=== PATIENT | female | born 1955 | race Caucasian/White ===

== ENCOUNTER → 2016-10-23 | Outpatient (CLI) | payer OTHER ==
[~2016-10-23] MED LIST: FELO10TA2 PO; HYDR25TA4 PO; LISI40TA PO; LPR100 PO; OXYC7.5T78 PO; POTA10CA28 PO; POTA10TA PO; SIMV40TA4 PO; TYLOTC500 PO
[2016-10-23 13:43] LABS: ALT/SGPT 18 U/L (12-78); BLOOD UREA NITROGEN 17 mg/dl (7-18); BUN/CREATININE RATIO 20.6 (10-20); CALCIUM 9.2 mg/dl (8.5-10.1); CARBON DIOXIDE 28 mmol/L (21-32); CHLORIDE 105 mmol/L (98-107); CREATININE 0.82 mg/dl (0.60-1.20); GLUCOSE 105 mg/dl (70-99); POTASSIUM 3.7 mmol/L (3.5-5.1); SODIUM 141 mmol/L (136-145)
[2016-10-23 13:44] LABS: TOTAL IRON BINDING CAPACITY 272 mcg/dl (250-450)
[2016-10-23 13:45] LABS: ALB/GLOB RATIO 0.8 (0.9-2); ALKALINE PHOSPHATASE 87 U/L (45-117); AST/SGOT 12 U/L (15-37)
[2016-10-27 00:38] LABS: PARVOVIRUS IgG INDEX 6.5 (<0.9); PARVOVIRUS IgM INDEX 0.2 (<0.9)
== END | disposition home or self-care (01) ==
LOC: C.LABPVFM 07:59
PROVIDERS: ATTEND Internal Medicine Rheumatology
DX: M13.0 Polyarthritis, unspecified (principal)

== ENCOUNTER → 2016-11-16 | Outpatient (CLI) | payer OTHER ==
[2016-11-16 11:32] LABS: BASO % 0.4 %; BASO ABS # 0.04 K/uL (0-0.2); COMPLETE YES; EOS % 1.5 %; HEMATOCRIT 43.5 % (37-47); IG% 0.2 %; LYMPH ABS # 2.57 K/uL (1.2-3.4); MEAN CELL VOLUME 85.3 fL (80-100); MEAN CORPUSCULAR HEMOGLOBIN 27.6 pg (25-34); MEAN CORPUSCULAR HGB CONC 32.4 g/dl (32-36); MEAN PLATELET VOLUME 11.8 fL (7.4-10.4); MONO % 8.7 %; NEUT % 63.2 %; PLATELET COUNT 301 K/uL (130-400); WHITE BLOOD COUNT 9.87 K/uL (4.8-10.8)
[2016-11-16 11:40] LABS: ALT/SGPT 16 U/L (12-78); AST/SGOT 10 U/L (15-37); BLOOD UREA NITROGEN 18 mg/dl (7-18); BUN/CREATININE RATIO 20.3 (10-20); CALCIUM 9.5 mg/dl (8.5-10.1); CARBON DIOXIDE 31 mmol/L (21-32); CHLORIDE 103 mmol/L (98-107); CREATININE 0.87 mg/dl (0.60-1.20); GLUCOSE 105 mg/dl (70-99); POTASSIUM 3.7 mmol/L (3.5-5.1); SODIUM 140 mmol/L (136-145)
[2016-11-16 11:44] LABS: C-REACTIVE PROTEIN 1.87 mg/dl (0-0.29); RHEUMATOID FACTOR < 10.0 U/mL (0-15)
[2016-11-16 11:44] LABS: ALB/GLOB RATIO 0.9 (0.9-2); ALKALINE PHOSPHATASE 98 U/L (45-117)
[2016-11-16 18:23] LABS: LYME DISEASE AB IGM NEG (NEG)
[2016-11-16 18:26] LABS: LYME DISEASE AB IGG NEG (NEG)
[2016-11-19 20:17] LABS: HLA-B27** TC 528X POSITIVE (NEGATIVE)
[2016-11-20 14:07] LABS: ANA TITER > OR = 1:1280 TITER (<1:40)
== END | disposition home or self-care (01) ==
LOC: C.LABBC 08:42
PROVIDERS: ATTEND Orthopaedic Surgery Sports Medicine
DX: M25.561 Pain in right knee (principal); I10 Essential (primary) hypertension; E78.5 Hyperlipidemia, unspecified

== ENCOUNTER → 2016-11-18 | Outpatient (CLI) | payer OTHER ==
--- NOTE | 2016-11-18 10:48 | DIAGNOSTIC IMAGING REPORT ---
LEFT KNEE MRI CLINICAL HISTORY: 61-year-old female with left knee pain, clinical concern for meniscal tear, no reported injury. TECHNIQUE: Multiplanar multisequence MRI of the left knee was performed according to standard department protocol without the use of contrast. COMPARISON: Correlation made to plain radiographs of the left knee from 2017 and left knee MRI from 2013.. FINDINGS: Menisci: Minimal intrasubstance signal within the body of the medial meniscus, likely degenerative. Medial meniscus is otherwise intact. Fraying of the undersurface of the lateral meniscus at the junction of the anterior horn and body, which is also abnormal in configuration and displaced slightly superior laterally. This likely indicates complex tear. The meniscotibial ligament may be disrupted, accounting for the altered morphology. Parameniscal cyst along the posterior horn-body junction, likely indicating chronic tear in this region. Ligamentous: Anterior posterior cruciate ligaments intact. Medial collateral ligament intact. Lateral collateral ligament complex including the iliotibial band, biceps femoris tendon, fibular collateral ligament, and popliteus tendon are intact. There may be slight high signal within the femoral origin of the fibular collateral ligament, which may be tendinosis. Fluid around the popliteus tendon may also indicate tendinosis. Extensor mechanism: Intact. Slight increased signal within Hoffa's fat pad. Joint effusion. Small knee joint effusion. No significant popliteal cyst. Bones and cartilage: Interval development of subchondral sclerosis in the lateral femoral condyle and lateral tibial plateau, where there is significantly greater articular cartilage loss and on the prior exam. Interval development of subchondral cystic change along the anterior aspect of the lateral tibial plateau, new from prior. Heterogeneous mild bony edema noted in both femoral condyles and medial lateral tibial plateau, also new from prior. Mild bony edema also noted along the anterior aspect of the patella. Significant thinning of articular cartilage in the medial compartment diffusely, which has progressed and has the greatest degree of joint space loss. Focal subchondral cystic change along the posterior aspect of the medial tibial plateau. Articular cartilage thinning in both the medial and lateral patellofemoral facets with full-thickness fissuring noted medially with subchondral cystic change in the patella. Soft tissues: Diffuse subcutaneous edema around the knee. Overall preserved signal intensity of the musculature with normal muscle bulk. IMPRESSION: 1. Significant interval progression of tricompartmental degenerative changes. 2. Possible complex tear of the anterior horn-body junction of the lateral meniscus. The presence of a parameniscal cyst at the posterior horn-body junction of the lateral meniscus also could indicate chronic tear. 3. Small knee joint effusion. Electronically signed by: Marshall Mercedes M.D. 11/18/2016 10:47 AM Dictated Date/Time: 11/18/2016 10:04 AM
== END | disposition home or self-care (01) ==
LOC: C.MRIBC 09:00
PROVIDERS: ATTEND Orthopaedic Surgery Sports Medicine
DX: M25.562 Pain in left knee (principal); S83.207A Unspecified tear of unspecified meniscus, current injury, left knee, initial encounter; X58.XXXA Exposure to other specified factors, initial encounter; M17.12 Unilateral primary osteoarthritis, left knee; M25.462 Effusion, left knee

== ENCOUNTER → 2017-05-21 | Outpatient (CLI) | payer OTHER ==
[2017-05-21 18:04] LABS: GLUCOSE 99 mg/dl (70-99)
[2017-05-21 18:04] LABS: BLOOD UREA NITROGEN 14 mg/dl (7-18); BUN/CREATININE RATIO 16.8 (10-20); CALCIUM 9.4 mg/dl (8.5-10.1); CARBON DIOXIDE 29 mmol/L (21-32); CHLORIDE 105 mmol/L (98-107); CREATININE 0.86 mg/dl (0.60-1.20); EstGFR CKD-E AfrAm 85.1; EstGFR CKD-E NON AfrAm 73.4; MAGNESIUM 2.5 mg/dl (1.8-2.4); POTASSIUM 4.4 mmol/L (3.5-5.1); SODIUM 140 mmol/L (136-145)
[2017-05-21 18:46] LABS: HEP C IGG 13 YRS+OLDER_RFLX NEG (NEG)
== END | disposition home or self-care (01) ==
LOC: C.LABPVFM 15:31
DX: Z11.59 Encounter for screening for other viral diseases (principal); I10 Essential (primary) hypertension; G25.81 Restless legs syndrome

== ENCOUNTER 2018-06-07 10:09 | Inpatient (IN) ==
--- NOTE | 2018-05-13 15:58 | PAT Medication Instructions ---
Medication Instructions Date of Service May 13, 2018 Home Medications bupropion HCl 150 mg PO QAM felodipine 10 mg PO QAM hydrochlorothiazide 25 mg PO QAM lisinopril 40 mg PO QAM metoprolol tartrate 100 mg PO BID naproxen sodium [Aleve] 220 mg PO BID PRN potassium chloride 10 meq PO HS potassium chloride 20 meq PO QAM simvastatin 40 mg PO HS ASK your surgeon for instructions naproxen sodium [Aleve] 220 mg PO BID PRN DO NOT take the morning of surgery hydrochlorothiazide 25 mg PO QAM lisinopril 40 mg PO QAM potassium chloride 20 meq PO QAM Take morning of surgery With a small sip of water, OTHERWISE NOTHING TO EAT OR DRINK AFTER MIDNIGHT: bupropion HCl 150 mg PO QAM felodipine 10 mg PO QAM metoprolol tartrate 100 mg PO BID Take evening before surgery metoprolol tartrate 100 mg PO BID potassium chloride 10 meq PO HS simvastatin 40 mg PO HS Other Notes If you have any questions please call us at [phone] or [phone] or [phone] or [phone]
--- NOTE | 2018-05-16 09:43 | Anesthesiology Consultation ---
Date of Service May 16, 2018 Assessment & Plan (1) Encounter for pre-operative examination: Chart Review Chart Review: Acceptable Risk for Surgery and Patient seen in Pre Admission Testing Teaching & Discussion Pre-Anesthesia Teaching/Discussion Notes: Instructed NPO after midnight before surgery,except medications with 15 cc of water. Medication instructions provided according to the PAT guidelines. History Surgery Operation Date: 06/07/18 10:40 Proposed Procedures p Left Total Knee Arthroplasty - Vic Bhat MD Height/Weight Height: 5 ft 3 in Weight: 88.4 kg Allergies Allergy/AdvReac Type Severity Reaction Status Date / Time No Known Allergies Allergy Mild Verified 05/10/18 13:44 Medications Home Medications Medication Instructions Recorded Confirmed Last Taken bupropion HCl 150 mg PO QAM 05/10/18 05/10/18 Unknown felodipine 10 mg PO QAM 05/10/18 05/10/18 Unknown hydrochlorothiazide 25 mg PO QAM 05/10/18 05/10/18 Unknown lisinopril 40 mg PO QAM 05/10/18 05/10/18 Unknown metoprolol tartrate 100 mg PO BID 05/10/18 05/10/18 Unknown naproxen sodium [Aleve] 220 mg PO BID PRN 05/10/18 05/10/18 Unknown potassium chloride 10 meq PO HS 05/10/18 05/10/18 Unknown potassium chloride 20 meq PO QAM 05/10/18 05/10/18 Unknown simvastatin 40 mg PO HS 05/10/18 05/10/18 Unknown Past Medical History Medical History Anxiety Depression GERD (gastroesophageal reflux disease) CONTROLLED WITH OTC PRN Hyperlipidemia Hypertension Obesity Past Family History Family History Father Family history of diabetes mellitus Mother Family history of diabetes mellitus Past Surgical History Surgical History History of appendectomy History of arthroscopy LEFT KNEE History of bilateral tubal ligation History of dilatation and curettage Past Anesthesia History No Hx of Anesthesia Complications and No Family Hx of Anesthesia Complications History of PONV No Motion Sickness Screening History of Motion Sickness: Yes (OCCASIONAL) Social History Smoking Status: Current every day smoker tobacco type: cigarettes Smoking cigarettes per day: 1 PPD X 40 YEARS Do You Dip or Chew Tobacco: No Hx Alcohol Use: No Hx Substance Use: No substance use type: does not use Exercise / Class Metabolic Activity III < 4 Walking/Shop/Light housework Review of Systems URI symptoms improving. Patient denies chest pain, shortness of breath, wheezing , palpitations. Physical Exam Vital Signs VITALS BP 124/77 P 67 TEMP 98.2 SP02 95%RA RESP 16 Full neck and c-spine range of motion. Full TMJ range of motion. TMD 2.5 finger breaths Mallampati Score 2 Dentition: upper full dentures Lungs: clear throughout to auscultation Cardiac: regular rate and rhythm, no murmurs noted Spine: normal Carotid arteries: negative bruit Extremities: no edema Testing Electrocardiogram Date: 05/16/18 NSR at 64 bpm. Cannot rule out anterior infarct, age undetermined (compared to , ventricular rate decreased by 57bpm per cardio). Chest X-Ray Date: 05/16/18 Findings: + NAD Incidental note is made of an azygos fissure. Echocardiogram Date: 10/04/12 EF 60%. No RWMA. Mild MR/TR. Stress Test Date: 10/05/12 Type: exercise Normal stress ECHO at 10.4 METS. MPHR 66%. No chest pain. Laboratory Results 05/16/18 09:52 05/16/18 09:52 Blood Type O Positive 05/16/18 09:52 Antibody Screen NEGATIVE 05/16/18 09:52 PT 10.7 Seconds (9.0-12.0) 05/16/18 09:52 INR 1.1 (0.9-1.1) 05/16/18 09:52 APTT 31.0 Seconds (21.0-31.0) 05/16/18 09:52 Surgeon made aware of elevated WBC.*
--- NOTE | 2018-05-16 10:10 | XRay Report ---
XR chest Pre-admission PA/Lat CLINICAL HISTORY: Preoperative evaluation. COMPARISON STUDY: Chest radiograph and chest CT November 14, 2014. FINDINGS: Incidental note is made of an azygos fissure. There is no pneumothorax or pleural effusion. There is no consolidation or evidence for pulmonary edema. Cardiomediastinal silhouette is unremarka ble. IMPRESSION: No acute cardiopulmonary findings. Electronically signed by: Pollo Rubi M.D. 05/16/2018 10:09 AM
[2018-05-16 10:30] LABS: Basophils # (auto) 0.03 K/uL (0-0.2); Basophils % (auto) 0.3 %; Eosinophils # (auto) 0.13 K/uL (0-0.5); Eosinophils % (auto) 1.1 %; Hematocrit (blood only) 43.7 % (37-47); Hemoglobin 14.3 g/dL (12.0-16.0); Immature Granulocytes # (auto) 0.02 K/uL (0.00-0.02); Immature Granulocytes % (auto) 0.2 %; Lymphocytes # (auto) 3.25 K/uL (1.2-3.4); Mean Corpuscular Hgb Conc 32.7 g/dL (32-36); Mean Corpuscular Volume 87.4 fL (80-100); Mean Platelet Volume 11.5 fL (7.4-10.4); Monocytes # (auto) 0.94 K/uL (0.11-0.59); Monocytes % (auto) 8.1 %; Neutrophils # (auto) 7.23 K/uL (1.4-6.5); Neutrophils % (auto) 62.3 %; Platelet Count 313 K/uL (130-400); RDW Coefficient of Variation 14.1 % (11.5-14.5); RDW Standard Deviation 44.8 fL (36.4-46.3)
[2018-05-16 10:39] LABS: BUN Creatinine Ratio 17.3 (10-20); C Reactive Protein 1.78 mg/dl (0-0.29); Calcium 9.4 mg/dl (8.5-10.1); Creatinine Clr Calc Pharmacy 76.9 ml/min; Est GFR (African American) 90.9; Est GFR (Non-African American) 78.4; Potassium 3.9 mmol/L (3.5-5.1)
[2018-05-16 10:41] LABS: INR 1.1 (0.9-1.1); Partial Thromboplastin Ratio 1.2; Prothrombin Time 10.7 Seconds (9.0-12.0)
--- NOTE | 2018-06-04 13:34 | History and Physical Report ---
DATE OF ADMISSION: 06/07/2018 CHIEF COMPLAINT: Left knee pain. HISTORY OF PRESENT ILLNESS: The patient is a 63-year-old female who has got a very complex history relating to her left knee. She has about a 4-5 year history of increasing left knee pain and discomfort. She did undergo an open biopsy of an epidermoid cyst by Dr. Alana aguilar in 2013. The Gram stain was positive. The cultures were negative. Shortly thereafter, she developed intraarticular pathology and symptoms. She had recurrent knee effusions. We were aspirated on several occasions and sent off for analysis. It looks like an inflammatory fluid, but never grew anything. She has had an elevated sed rate and C-reactive protein and the elevated JELENA and was also HLA-B27 positive, but rheumatoid factor negative. She saw a head of ict who diagnosed her with CREST syndrome, but another said she did not have CREST syndrome. She saw Dr. Neal, had her knee scoped in 2014, which did not help at all. She did eventually make away down to [facility] and had an open biopsy in 2014, which was nondiagnostic. She continues to be limited by the knee pain and discomfort that has gradually just gotten worse over time. She has been followed by Dr. Gudino over the past year, trying various medicines without relief. She continues to be debilitated by pain. She cannot walk any significant distance. She limps pretty much all the time. She now would like to proceed with surgical treatment. PAST MEDICAL HISTORY: 1. Hypertension. 2. Anxiety/depression. 3. Obesity with BMI of 35. 4. Gastroesophageal reflux disease. PAST SURGICAL HISTORY: Previous surgeries include: 1. Left knee surgery x3 as described above with an open biopsy in 2013, knee scope in 2014 and an open synovial biopsy in 2014 at [facility]. 2. Appendectomy. ALLERGIES: None. CURRENT MEDICATIONS: Unlisted. SOCIAL HISTORY: Significant for a 63-year-old female. She is . [id number] history of smoking. No significant alcohol intake. FAMILY HISTORY: Significant for a diagnosis of ankylosing spondylitis. REVIEW OF SYSTEMS: Negative for diabetes, neurologic problems, vascular problems, bleeding disorders. No chest pain or shortness of breath. No history of DVT or PE. PHYSICAL EXAMINATION: GENERAL: Reveals a fairly pleasant, middle-aged female. Looks to be in pretty good health. HEENT: Benign. NECK: Supple. No lymphadenopathy. LUNGS: Clear to auscultation. HEART: Regular rate and rhythm. ABDOMEN: Soft, nontender, nondistended. EXTREMITIES: Grossly neurovascularly intact except as follows: Examination of the left knee reveals patient walks with a significant antalgic gait. She keeps her knee slightly bent and stiff when she walks. Range of motion about 10 degrees short of full extension to about 100 degrees of flexion. Some mild diffuse boggy synovitis. No pain with hip motion. She is neurologically intact. X-RAYS: X-rays of the left knee reviewed. Shows advanced left knee lateral compartment DJD. She has complete loss of her lateral joint space. She got some disuse osteopenia. No obvious abscesses. ASSESSMENT: A 63-year-old white female with a 4-year history of persistent left hip pain and discomfort, unresponsive to conservative treatment. She does have an inflammatory workup, which suggests some type of inflammatory arthritis. She has failed all conservative treatment. Cultures have all been pretty negative for any signs of infection. PLAN: We talked about treatment options. She really would like to have this fixed if possible. She would like to have her knee replaced. We are going to proceed with left knee replacement. I did tell her that I think she is at increased risk of infection with all these other issues, but later only chance of getting some relief. We are going to take her to the operating room and do a left total knee replacement. The risks and benefits of this procedure were explained to the patient including but not limited to DVT, PE, , infection, neurological injury, vascular injury, bleeding problem, pain, limited range of motion, stiffness, failure to relieve her symptoms, incomplete relief of symptoms, need for further surgery in future, fracture, leg length inequality, nerve palsy, persistent pain, and infection. The patient understands and desires to proceed. Informed consent was obtained. I did tell her that I do think she is at increased risk of infection. Will use some vancomycin in the cement. I also talked about stopping smoking which increases her chance of healing without infection. As far as discharge plans, she is planning to be discharged to home and do outpatient therapy.
[~2018-06-07 10:09] MED LIST changes: +ACETAMINOPHEN 500 MG TAB PO SCH; +BUPIVACAINE 0.5 % 5 MG/1 ML PF 10ML VIAL ONE; +BUPIVACAINE LIPOSOME/PF 266 MG, BUPIVACAINE/EPINEPHRINE 50 ML, SODIUM CHLORIDE 0.9% 30 ... INFIL SCH; +CEFAZOLIN 2000MG 2,000 MG/15 ML SYR IV SCH; +FAMOTIDINE 20 MG TAB PO SCH; -FELO10TA2 PO; +GABAPENTIN 300 MG x 2 PO SCH; -HYDR25TA4 PO; -LISI40TA PO; -LPR100 PO; +LR 60ML/HR IV SCH; +METOCLOPRAMIDE HCL 10 MG TABLET PO SCH; -OXYC7.5T78 PO; -POTA10CA28 PO; -POTA10TA PO; +ROPIVACAINE 0.5% 5 MG/ML 30 ML VIAL ONE; +SCOPOLAMINE 1.5 MG TDSY TD SCH; -SIMV40TA4 PO; +TRANEXAMIC ACID 1,000 MG **IV Intra-op IV SCH; -TYLOTC500 PO
[2018-06-07] MEDS: LR 500ML BOLUS, THEN 15ML/HR IV SCH ×4 (10:51→22:12)
--- NOTE | 2018-06-07 10:52 | History & Physical Bridge Note ---
Date of Service June 07, 2018 History & Physical Bridge Note I have examined the patient, reviewed the History & Physical and in the interval since the performance of the History & Physical I have noted the following changes of clinical significance: no changes noted
[2018-06-07] MEDS ORDERED: BACITRACIN INJ 50,000 UNIT VIAL ONE (10:53)
[2018-06-07] MEDS ORDERED: SODIUM CHLORIDE 0.9% PF 50 ML VIAL ONE (10:53)
[2018-06-07] MEDS ORDERED: EPINEPHrine INJ 1 MG/ML AMP ONE (10:53)
[2018-06-07] MEDS ORDERED: BUPIVACAINE 0.25% 30 ML VIAL ONE (10:53)
[2018-06-07] MEDS ORDERED: BUPIVACAINE LIPOSOME 1.3% 266 MG/20 ML VIAL ONE (10:53)
[2018-06-07] MEDS ORDERED: VANCOMYCIN HCL 1000MG/20ML VIAL ONE (10:59)
--- NOTE | 2018-06-07 10:59 | History & Physical Bridge Note ---
Date of Service June 07, 2018 History & Physical Bridge Note I have examined the patient, reviewed the History & Physical and in the interval since the performance of the History & Physical I have noted the following changes of clinical significance: Patient having significant swelling and pain in right Knee and requesting aspiration and injection under anesthesia. We will aspirate and inject the right knee today under anesthesia.
[2018-06-07] MEDS ORDERED: fentaNYL citrate 100 MCG/2 ML VIAL ONE (11:55)
[2018-06-07] MEDS ORDERED: MIDAZOLAM HCL 1 MG/ML 2ML VIAL ONE ×2 (11:56)
[2018-06-07] MEDS ORDERED: BUPIVACAINE 0.5 % 5 MG/1 ML MPF 30ML VIAL ONE (12:45)
[2018-06-07] MEDS ORDERED: BETAMETH SOD PHOS/ACETATE IA 6 MG/ML IM SCH (13:00)
[2018-06-07] MEDS ORDERED: PROPOFOL IV EMULSION 10 MG/ML 20 ML VIAL IV ONE (13:28)
[2018-06-07] MEDS ORDERED: LIDOCAINE HCL 2% 2 ML VIAL/AMP(20MG/ML) INFIL ONE (13:28)
[2018-06-07 14:57] LABS: Appearance Synovial Fluid CLOUDY; Color Synovial Fluid YELLOW; Polynuclear WBC Synovial 75.9 %; RBC Synovial Fluid (A) < 3000 /uL; Source Synovial Fluid KNEE; WBC Synovial Fluid (A) 5791 /uL (0-200)
--- NOTE | 2018-06-07 15:15 | Anesthesiology Progress Note ---
Date of Service June 07, 2018 Anesthesia Post Procedure Vital Signs Vital Signs: Temp Pulse Resp BP Pulse Ox 06/07/18 10:26 36.7 C 65 18 136/84 95 Pain Intensity Left Knee: Pain Intensity: 3 Notes Mental Status: alert / awake / arousable and participated in evaluation Patient Amnestic to Procedure: Yes Nausea / Vomiting: adequately controlled Pain: adequately controlled Airway Patency, RR, SpO2: stable & adequate BP & HR: stable & adequate Hydration State: stable & adequate Neuraxial Anesthesia: was administered and sensory block is resolving Anesthetic Complications: no major complications apparent
--- NOTE | 2018-06-07 15:23 | Post Operative Brief Note ---
Immediate Post Op Note v1 Date of Surgery June 07, 2018 Pre & Post Diagnosis Operation Date: 06/07/18 12:30 Pre-Op Diagnosis: Bilateral Knee Degenerative Joint Disease Post-Op Diagnosis: Bilateral Knee Degenerative Joint Disease Procedure Operation Date: 06/07/18 12:30 Actual Procedures p Left Total Knee Arthroplasty(Left) - Vic Bhat MD p Right knee Joint Aspiration and Injection - Vic Bhat MD Surgeon Vic Bhat MD Modern Greek Studies Professor Tammy, PAC Estimated Blood Loss 50 Findings Consistent with Post-Op Diagnosis Fluids 1300 cc Specimens Left Knee Right Knee Fluid Drains Florian Catheter Anesthesia Type Spinal MAC Complications none Disposition Accompanied Patient To Recovery: No Disposition: Recovery Room
--- NOTE | 2018-06-07 15:47 | Anesthesiology Progress Note ---
Date of Service June 07, 2018 Anesthesia Post Procedure Vital Signs Vital Signs: Temp Pulse Resp BP Pulse Ox 06/07/18 10:26 36.7 C 65 18 136/84 95 Pain Intensity Left Knee: Pain Intensity: 3 Notes Notes: Anesthesia Post Procedure Note entered at 1515 was misentry. Pt will be evaluated in PACU prior to discharge as per routine.
--- NOTE | 2018-06-07 15:51 | Anesthesiology Progress Note ---
Date of Service June 07, 2018 Anesthesia Post Procedure Vital Signs Vital Signs: Temp Pulse Pulse Resp BP Pulse Ox 06/07/18 15:27 36.5 C 67 20 110/69 99 06/07/18 10:26 36.7 C 65 18 136/84 95 Pain Intensity Left Knee: Pain Intensity: 3 Notes Mental Status: alert / awake / arousable Patient Amnestic to Procedure: Yes Nausea / Vomiting: adequately controlled Pain: adequately controlled Airway Patency, RR, SpO2: stable & adequate BP & HR: stable & adequate Hydration State: stable & adequate Neuraxial Anesthesia: was administered and sensory block is resolving Anesthetic Complications: no major complications apparent and Pt Satisfied with anesthetic care
[2018-06-07] MEDS ORDERED: ATROPINE SULFATE 0.1 MG/ML 10ML SYR IV PRN (15:56)
[2018-06-07] MEDS ORDERED: ONDANSETRON INJ 2 MG/ML 2 ML VIAL IV PRN ×2 (15:56→16:36)
[2018-06-07] MEDS ORDERED: ePHEDrine sulfate 50 MG/ML AMP IV PRN (15:56)
[2018-06-07] MEDS ORDERED: PHENYLEPHRINE 100MCG/ML 5ML SYR IV PRN (15:56)
[2018-06-07] MEDS ORDERED: fentaNYL citrate 100 MCG/2 ML VIAL IV PRN (15:56)
[2018-06-07] MEDS ORDERED: LABETALOL HCL IV 5 MG/ML 20ML IV PRN (15:56)
--- NOTE | 2018-06-07 15:57 | XRay Report ---
XR knee LT 2V routine HISTORY: 63 years-old Female Surgical Post Op left knee total joint arthroplasty. History of degener ative joint disease. COMPARISON: Left knee radiographs 05/15/2016 TECHNIQUE: 2 views of the left knee FINDINGS: Left knee total joint arthroplasty with patellar resurfacing. Anterior midline skin kerwin are noted along with postsurgical soft tissue swelling and deep tissue air. Alignment is satisfactory. No acut e fracture or retained foreign body identified. IMPRESSION: Left knee total joint arthroplasty and patella resurfacing with satisfactory alignment. The above report was generated using voice recognition software. It may contain grammatical, syntax o r spelling errors. Electronically signed by: Fabian Trimble M.D. 06/07/2018 3:55 PM
[2018-06-07] MEDS ORDERED: DiphenhydrAMINE HCL 50 MG/ML VIAL IV PRN (16:36)
[2018-06-07] MEDS ORDERED: METOCLOPRAMIDE HCL INJ 5 MG/ML 2 ML VIAL IV PRN (16:36)
[2018-06-07] MEDS ORDERED: HYDROmorphone INJ 0.5 MG/0.5 ML SYR IV PRN (16:36)
[2018-06-07] MEDS ORDERED: MAGNESIUM HYDROXIDE SUSP 30 ML UDC PO PRN (16:36)
[2018-06-07] MEDS ORDERED: SODIUM CHLORIDE 0.9% 1000ML 1,000 ML IV SCH (16:36)
[2018-06-07] MEDS ORDERED: NALOXONE HCL 0.4 MG/1 ML VIAL/CARP IV PRN (16:36)
[2018-06-07] MEDS ORDERED: ALUMINUM/MAGNESIUM SUSP 30 ML UDC PO PRN (16:36)
[2018-06-07] MEDS ORDERED: BISACODYL 10 MG SUPP PR PRN (16:36)
[2018-06-07] MEDS: KETOROLAC 30 MG/ML VIAL IV SCH ×2 (17:59→22:46)
[2018-06-07] MEDS: ASCORBIC ACID 500 MG TAB PO SCH (18:00)
[2018-06-07] MEDS: FERROUS GLUCONATE 324 MG TAB PO SCH (18:00)
[2018-06-07] MEDS: CHECK SCOPOLAMINE PATCH PLACEMENT SCH ×2 (18:03→23:49)
--- NOTE | 2018-06-07 18:44 | Operative Report ---
DATE OF OPERATION: 06/07/2018 SURGEON: Vic Bhat MD INTERACTIVE MULTIMEDIA DESIGNER: OLAYINKA Young PREOPERATIVE DIAGNOSIS: Bilateral knee degenerative joint disease. POSTOPERATIVE DIAGNOSIS: Bilateral knee degenerative joint disease. PROCEDURE PERFORMED: 1. Left cemented posterior stabilized total knee arthroplasty. 2. Right knee aspiration and injection. COMPLICATIONS: None. ESTIMATED BLOOD LOSS: 50 mL FLUID REPLACEMENT: 1300 mL crystalloid fluid replacement. TOURNIQUET TIME: 86 minutes at 300 mmHg. ANESTHESIA: Spinal with adductor canal block. DRAINS: None. SPECIMENS: 1. Right knee joint fluid sent for cell count with differential and crystal analysis. 2. Left knee a joint synovium sent for pathology. OPERATIVE INDICATIONS: The patient is a 63-year-old female who has had a several year history of pretty severe and progressive knee pain and discomfort, left side much more than the right. She has been through extensive workup in the past including several biopsies as well as knee arthroscopy without any relief. X-rays as well as MRI showed progressive knee arthritis in the left knee. She also had a synovial biopsy, which was nondiagnostic. There was some concern for infection, but a lot of her inflammatory parameters including her JELENA and HLA-B27 were positive. This suggested some type of inflammatory process, which was consistent with her disease pattern. All the evaluations has never showed any bacterial growth. Her disease progressed and she was markedly debilitated by this over the past 2 years. She has been managed by sales incentive analyst unsuccessful and elected to proceed with total knee arthroplasty. Of note, the patient has developed increasing symptoms in her right knee as well with recurrent effusions. She wanted this aspiration injection. OPERATIVE FINDINGS: Operative findings of the right knee revealed moderate to large knee joint effusion with 40 mL of inflammatory fluid. Operative findings of the left knee revealed a markedly arthritic and inflamed knee. She had scarring of the joint and the synovium to the cartilage itself, particularly the distal femur. She had thickening of the posterior fat pad with scarring with an inflammatory infiltrate. She had inflammatory erosions in all 3 compartments. She had diffuse osteopenia. She had a very stiff knee with about a 10-15 degree flexion contracture and flexion to about 100 degrees. OPERATIVE IMPLANTS: Operative implants consisted of: 1. Biomet Vanguard size 60 left posterior stabilized femoral component. 2. Biomet size 67 tibial tray. 3. A 10 mm posterior stabilized polyethylene insert. 4. A 31 x 8 all-poly patella. OPERATIVE PROCEDURE: The patient was taken to the operating room, identified, and placed on the operating table in supine position. All contact areas were appropriately padded. IV antibiotics followed by anesthesia team. A spinal anesthetic and adductor canal block had been provided in the holding area. Florian catheter was placed in sterile fashion. Left thigh tourniquet was then placed. Attention was first drawn to the right knee. The right knee was cleaned with alcohol. I aspirated the knee for about 40 mL of inflammatory fluid. I then injected with 2 mL of Celestone and 8 mL of Marcaine. The aspirate fluid result revealed 5700 white cells with 75% polys. A 4 x 4 bandage was placed over this and a TIM stocking. Attention was then drawn to the left leg. Left leg was then prepped and draped in usual sterile fashion. The left leg was elevated and exsanguinated with Esmarch and tourniquet was placed at 300 mmHg. An anterior approach to the left knee was then performed through a longitudinal incision centered over the patella. Sharp dissection was carried through subcutaneous tissue down to the level of the extensor mechanism. A medial parapatellar arthrotomy incision was made. There was marked thickening of the synovium. I did do a complete synovectomy of the suprapatellar pouch as well as the medial and lateral gutters as well as behind the patella tendon. I did have to dissect some and cut some of the synovium from its attachments to the medial femoral condyle, particularly as well as the trochlea. The patella was then subluxated laterally. The knee was flexed. The lateral compartment was really quite stiff. I removed the osteophytes from the intercondylar notch and released the ACL and PCL. Even doing this, I had a little difficulty exposing the lateral side, so I elected to cut the femur first. The distal femur was entered with a sharp drill bit. Intramedullary canal was suctioned. The left 5 degree valgus cutting guide was placed. Distal femoral cutting block was pinned in place. Distal femoral cut was made to take an additional 3 mm of bone off the distal femur. The femur was then sized to a size 60. We did downsize this slightly. The AP cutting block was pinned parallel to the epicondylar axis, which was 5 degrees of external rotation. The anterior cut, anterior chamfer cut, posterior cut, posterior chamfer cuts were made. Box cutting guide was placed and adjusted slightly laterally and the box cut was made. The knee was flexed. I could then adequately expose the lateral side. I did do some releases on the lateral side in order to increase exposure. I still had difficulty using the external tibial alignment jig, so I did use an intramedullary guide. The intercondylar eminence was removed. The intramedullary canal was opened and the IM katia was placed on the tibia. The cutting guide was then placed on the anterior face of the tibia to remove 4 mm of bone from the most deficient aspect of the medial tibial plateau. Some osteophytes were taken off medial and posteromedially. Tibia sized to a size 67. The knee was flexed. The remnants of the medial and lateral menisci were excised. The osteophytes were taken off the posterior aspect of the femur. Trial femoral component was placed. The tibial tray was pinned in maximum external rotation and drill and stem punch were used to create the defect in proximal tibia for the tibial tray. I then trialed the knee and the 10 mm insert fit most appropriately. It was just a little bit lax in extension but due to her stiffness, I felt this was optimal. Attention was then drawn to the patella. Patella was cleaned of all soft tissues. Patella thickness measured 20 mm in thickness and was cut down to 13. It was sized to a size 31 x 8 all-poly patella. Lug holes were drilled for a 31 patella. The lateral osteophyte was removed. Patella button was placed. Knee was taken through range of motion and patella tracked nicely with no thumbs test. Attention was then drawn toward placement of permanent components. All trial components were removed. I did place a bone plug in the distal femur as well as the proximal tibia. The wound was irrigated extensively. A double batch of Palacos G cement was mixed with 2 additional grams of vancomycin due to her immune compromised status and multiple surgeries in the past. A Biomet Vanguard size 60 left posterior stabilized femoral component, size 67 tibial tray, 10 mm posterior stabilized polyethylene insert, and a 31 x 8 all-poly patella then cemented in place. Knee was prepped in full extension until the cement had hardened. A final cement check was then performed. The pericapsular tissues were injected, a total 100 mL of a combination of 20 mL of Exparel, 30 mL of normal saline, 50 mL of 0.25% Marcaine with epinephrine. The patient did receive 1 g of tranexamic acid. The tourniquet was then let down for final tourniquet time 86 minutes. Hemostasis was assured using electrocautery. The extensor mechanism was then closed with a combination of #1 PDS suture and #1 Vicryl suture in a [id number] fashion. Extensor mechanism was checked and found to be intact. The subcutaneous tissues were then closed with #2 Dexon suture in buried interrupted fashion. Skin was closed with skin kerwin. Leg was then cleaned, dried, and a sterile dressing with Xeroform, 4 x 4, sterile cast padding and Ronnie bandage were applied. The patient then transferred to the recovery room in stable condition. The patient tolerated the procedure well with no complication. All needle and sponge counts were correct at the end of the operation. I attest to the content of the Intraoperative Record and any orders documented therein. Any exception s are noted below.
[2018-06-07] MEDS: OXYCODONE HCL IR 5 MG TAB (IMMEDIATE RELEASE) PO PRN ×2 (19:50→20:27)
[2018-06-07] MEDS ORDERED: TRANEXAMIC ACID 1,000 MG in 0.9 % SODIUM CHLORIDE 100 ML IV SCH (21:25)
[2018-06-07] MEDS: TAPENTADOL HCL ER 50 MG TABCR PO SCH (21:32)
[2018-06-07] MEDS: CEFAZOLIN 2000MG 2,000 MG/15 ML SYR IV SCH (21:32)
[2018-06-07] MEDS: DOCUSATE SODIUM 100 MG CAP PO SCH (21:32)
[2018-06-07] MEDS: SENNA 8.6 MG TAB PO SCH (21:33)
[2018-06-07] MEDS: ASPIRIN 81 MG ECTAB PO SCH (21:33)
[2018-06-07] MEDS: ACETAMINOPHEN 500 MG TAB PO SCH (21:34)
[2018-06-07] MEDS: POTASSIUM CHLORIDE 10 MEQ TABCR PO SCH (21:49)
[2018-06-07] MEDS: METOPROLOL TARTRATE 100 MG TAB PO SCH (21:50)
[2018-06-07] MEDS: SIMVASTATIN 40 MG TAB PO SCH (21:50)
[2018-06-08] MEDS: KETOROLAC 30 MG/ML VIAL IV SCH ×5 (05:22→23:21)
[2018-06-08] MEDS: CEFAZOLIN 2000MG 2,000 MG/15 ML SYR IV SCH (05:23)
[2018-06-08] MEDS: ACETAMINOPHEN 500 MG TAB PO SCH ×3 (05:23→21:50)
[2018-06-08 05:47] LABS: Hematocrit (blood only) 37.9 % (37-47); Hemoglobin 12.3 g/dL (12.0-16.0); Mean Corpuscular Hgb Conc 32.5 g/dL (32-36); Mean Corpuscular Volume 86.9 fL (80-100); Mean Platelet Volume 11.2 fL (7.4-10.4); Platelet Count 262 K/uL (130-400); RDW Coefficient of Variation 13.8 % (11.5-14.5); RDW Standard Deviation 43.9 fL (36.4-46.3); Red Blood Count 4.36 M/uL (4.2-5.4); White Blood Count 15.19 K/uL (4.8-10.8)
[2018-06-08 06:13] LABS: BUN Creatinine Ratio 19.1 (10-20); Calcium 8.4 mg/dl (8.5-10.1); Creatinine Clr Calc Pharmacy 68.8 ml/min; Est GFR (African American) 78.9; Est GFR (Non-African American) 68.1; Potassium 3.8 mmol/L (3.5-5.1)
[2018-06-08] MEDS: FERROUS GLUCONATE 324 MG TAB PO SCH ×2 (08:41→18:54)
[2018-06-08] MEDS: DOCUSATE SODIUM 100 MG CAP PO SCH ×2 (08:41→20:35)
[2018-06-08] MEDS: ASCORBIC ACID 500 MG TAB PO SCH ×2 (08:41→18:54)
[2018-06-08] MEDS: hydroCHLOROthiazide 25 MG TAB PO SCH (08:42)
[2018-06-08] MEDS: MULTIVITAMIN TAB PO SCH (08:43)
[2018-06-08] MEDS: METOPROLOL TARTRATE 100 MG TAB PO SCH ×2 (08:43→20:36)
[2018-06-08] MEDS: POTASSIUM CHLORIDE 10 MEQ TABCR PO SCH ×2 (08:43→20:36)
[2018-06-08] MEDS: TAPENTADOL HCL ER 50 MG TABCR PO SCH ×2 (08:44→20:35)
[2018-06-08] MEDS: ASPIRIN 81 MG ECTAB PO SCH ×2 (08:44→20:37)
[2018-06-08] MEDS: FELODIPINE 5 MG TABCR PO SCH (08:44)
[2018-06-08] MEDS: LISINOPRIL 40 MG TAB PO SCH (08:45)
[2018-06-08] MEDS: BuPROPion XL 150 MG TABCR PO SCH (08:45)
--- NOTE | 2018-06-08 09:53 | Progress Note ---
DATE: 06/08/2018 SUBJECTIVE: A 63-year-old white female postop day 1 from a left knee replacement as well as a right knee aspiration injection. She is doing well. Pain is controlled. No chest pain or shortness of breath. Not feeling dizzy or lightheaded. OBJECTIVE: VITAL SIGNS: Temperature 36.8. Vital signs stable. GENERAL: Physical examination reveals a pleasant, middle-aged female. She is sitting up in her bedside chair and looks quite comfortable. EXTREMITIES: Examination of the left leg reveals the dressing to be clean, dry and intact. She can dorsiflex and plantarflex her foot appropriately. She is neurologically intact. LABORATORY DATA: Hemoglobin 12.3. Hematocrit 37.9. Electrolytes are stable. ASSESSMENT: A 63-year-old white female postop day 1 from a left knee replacement, doing pretty well. Her pain is controlled. She is neurologically intact. PLAN: 1. DVT prophylaxis including thigh-high TEDs, SCDs, and aspirin twice a day. 2. PT and OT. Weightbear as tolerated. Left total knee protocol. 3. Pain control, doing well with current pain regimen. 4. Disposition: She is planning to be discharged to home likely with some home health once adequately recovered.
[2018-06-08] MEDS: SIMVASTATIN 40 MG TAB PO SCH (20:36)
[2018-06-08] MEDS: SENNA 8.6 MG TAB PO SCH (20:36)
[2018-06-09] MEDS: ACETAMINOPHEN 500 MG TAB PO SCH (05:24)
[2018-06-09] MEDS: KETOROLAC 30 MG/ML VIAL IV SCH ×2 (05:25→10:56)
--- NOTE | 2018-06-09 08:03 | Progress Note ---
DATE: 06/09/2018 SUBJECTIVE: A 63-year-old white female postop day 2 from a left knee replacement and a right knee aspiration and injection. She is doing well. Really not having much pain. Therapy is going well. No chest pain or shortness of breath. Not feeling dizzy or lightheaded. OBJECTIVE: VITAL SIGNS: Temperature 36.7. Vital signs stable. GENERAL: Physical examination reveals a pleasant, middle-aged female. She is sitting up in bed and then doing a heel prop. She looks comfortable. EXTREMITIES: Examination of the left leg reveals the dressing to be clean, dry and intact. Just some slight bruising around the incision site. Calf is soft and supple. She is neurologically intact. ASSESSMENT: A 63-year-old white female postop day 2 from a left knee replacement and a right knee aspiration injection, doing well. She is doing remarkably well from the pain standpoint. PLAN: 1. DVT prophylaxis including thigh-high TEDs, SCDs, and aspirin twice a day. 2. PT/OT. Weight bear as tolerated. Right total knee protocol. 3. Pain control, doing well with current pain regimen. 4. Disposition: Plan to discharge to home with some home health later today.
[2018-06-09] MEDS: POTASSIUM CHLORIDE 10 MEQ TABCR PO SCH (08:47)
[2018-06-09] MEDS: TAPENTADOL HCL ER 50 MG TABCR PO SCH (08:47)
[2018-06-09] MEDS: ASPIRIN 81 MG ECTAB PO SCH (08:48)
[2018-06-09] MEDS: LISINOPRIL 40 MG TAB PO SCH (08:49)
[2018-06-09] MEDS: ASCORBIC ACID 500 MG TAB PO SCH (08:49)
[2018-06-09] MEDS: FERROUS GLUCONATE 324 MG TAB PO SCH (08:49)
[2018-06-09] MEDS: MULTIVITAMIN TAB PO SCH (08:49)
[2018-06-09] MEDS: METOPROLOL TARTRATE 100 MG TAB PO SCH (08:50)
[2018-06-09] MEDS: DOCUSATE SODIUM 100 MG CAP PO SCH (08:51)
[2018-06-09] MEDS: BuPROPion XL 150 MG TABCR PO SCH (08:51)
[2018-06-09] MEDS: hydroCHLOROthiazide 25 MG TAB PO SCH (08:51)
[2018-06-09] MEDS: FELODIPINE 5 MG TABCR PO SCH (08:52)
[2018-06-09] MEDS: OXYCODONE HCL IR 5 MG TAB (IMMEDIATE RELEASE) PO PRN (11:05)
--- NOTE | 2018-06-11 01:19 | Discharge Summary ---
ADMITTING PHYSICIAN AND SURGEON: Vic Bhat MD ADMITTING DIAGNOSIS: Bilateral knee degenerative joint disease. PROCEDURE PERFORMED: 1. Left total knee replacement. 2. Right knee aspiration and injection. SECONDARY DIAGNOSES: Hypertension, anxiety, depression, obesity, gastroesophageal reflux disease. CONSULTS: None obtained. HISTORY AND PHYSICAL EXAMINATION: Well documented in the patient's chart. HOSPITAL COURSE: The patient was admitted on 06/07/2018 underwent total knee arthroplasty of her left knee also a right knee aspiration and injection. She tolerated the procedure well. There were no complications. She was transferred to the PACU postoperatively and later to the orthopedic for further care. She was given Ancef for antibiotic prophylaxis, TIM stockings, SCDs, and aspirin for DVT prophylaxis. Hemoglobin, hematocrit and vital signs were monitored during hospital stay and remained stable. She did not require blood transfusions. There were no complications. She did have fluid from her knee aspiration sent off for analysis, which showed 5791 WBCs. No crystals identified. By postoperative day #2, she was tolerating a regular diet, pain was controlled with oral pain medicine. She was participating in physical therapy. On postop day #2, she was discharged home, set up with home health services. She was given printed discharge instructions including new prescriptions for extra strength Tylenol, aspirin, and oxycodone. Continue her home medications, continue physical therapy, weightbearing as tolerated, TIM stockings. Follow up approximately 2 weeks postoperatively or sooner if there are any problems or concerns.
== END 2018-06-09 12:09 | disposition home health service (06) | DRG 470 ==
LOC: ASU 10:09 → 3E 15:28

== ENCOUNTER 2024-07-22 00:18 | Observation (INO) ==
[2024-07-22] MEDS: MoRPHine SULFATE 4 MG/ML 1 ML CARP\\VIAL IV STA ×3 (00:41→03:53)
--- NOTE | 2024-07-22 00:48 | Emergency Department Note ---
Impression & Plan Chest pain, Abdominal pain, RUQ ED Provider Note Provider: Alejandro Marquez MD CHIEF COMPLAINT: Severe chest pain to back HISTORY OF PRESENT ILLNESS: Patient is a 69-year-old female history of smoking recent pneumonia presenting here today reporting just under an hour of severe chest discomfort rating to her back awakening her from sleep. No history of similar. No real shortness of breath or abdominal pain or nausea. Pain is very severe. No trauma or syncope. Patient recently treated with azithromycin as well as prednisone and later a course of Levaquin. No cardiac history reported. No falls again reported. Maybe a little redness of the face and extremities and a bit of swelling reported. Pain again is very severe. PAST MEDICAL HISTORY: As noted above MEDICATIONS: Reviewed home medications SOCIAL HISTORY: PHYSICAL EXAM: GENERAL: alert and oriented appears quite uncomfortable on stretcher. Head: normocephalic and atraumatic EYES: No injection, discharge or icterus. NECK: Trachea midline. ENT: Mucous membranes pink and moist. LUNGS: Airway patent. No retractions. Breath sounds clear HEART: Regular rate and rhythm. No chest wall tenderness ABDOMEN: Soft with some tenderness to the mid to right upper quadrant. SKIN: Acyanotic, warm, dry, without rashes EXTREMITIES: Without swelling, tenderness or deformity NEUROLOGICAL: No focal deficits moving all extremities. No aphasia. No facial droop or slurred speech. Ambulatory. EK bpm normal sinus rhythm. No PVC or PAC. No acute ST segment elevation or depression with QTc of 406. CONTINUOUS CARDIAC MONITORING: was ordered and showed a heart rate of 70s-80s bpm in normal sinus rhythm Patient's laboratory studies and imaging reviewed. Differential includes Cardiac ischemia, aortic dissection, pulmonary embolism, pneumothorax, pneumonia, pericarditis, myocarditis, esophageal rupture, GERD, cholecystitis, pancreatitis, musculoskeletal, as well as other pathologies. IMPRESSION/MEDICAL DECISION MAKING: Not having significant nausea vomiting or abdominal pain. Significant pain in the chest rating to the back. Not short of breath. No trauma. No syncope. EKG without evidence of STEMI. Troponin send basic blood work sent. Given hypertension and severity of her pain sent for CT of the chest to exclude dissection. Extended through the abdomen pelvis to evaluate the whole aorta as well as see if there is any occult abnormalities of the biliary tree or upper abdomen that could be contributing to her pain complaints. Given some morphine for pain here initially. Not having neurological deficits. Blood work without anemia but a leukocytosis but is on a steroid course. No significant electrolyte abnormality or signs of renal dysfunction. No significant elevated bilirubin with just a slightly elevated AST and ALT of 72 and 60. Normal lipase. Normal alkaline phosphatase. Troponin normal. Will complete a right upper quadrant ultrasound as she is some tenderness there as well to exclude gallbladder pathology. CTA of the chest as well as abdomen pelvis completed to exclude dissection, obvious PE, pneumothorax/pneumonia, obstruction, or free air. Ultrasound of the gallbladder right upper quadrant obtained given right upper quadrant tenderness and pain without clear findings of cholecystitis/gallbladder edema. Patient after several dose of morphine has started to help the pain and discomfort. Now pain-free on reevaluation. Discussed with her given her significant discomfort earlier and pain did recommend we continue to monitor observe her here for further workup. Hospitalist team consulted. DIAGNOSIS: Chest pain, right upper quadrant abdominal pain DISPOSITION: Hospitalist will evaluate Patient was agreeable with this plan. Past Med/Surg History Problem List (Updated 07/22/24 @ 02:49 by Alejandro Marquez M.D.) Abdominal pain, RUQ (Acute) Chest pain (Acute) Pneumonia Thrush of mouth and esophagus Dyspnea on exertion Persistent cough for 3 weeks or longer Acute URI of multiple sites Morbid obesity Nocturnal hypoxemia Severe sleep apnea Epigastric abdominal pain Smoker Lower extremity edema Arthralgia Venous (peripheral) insufficiency JELENA positive History of right knee joint replacement Stress incontinence Anxiety CREST syndrome (Chronic) HLA B27 (HLA B27 positive) Anemia (Acute) Benign hypertension (Chronic 10/04/12) GERD (gastroesophageal reflux disease) (Chronic) Hyperlipidemia (Chronic 10/04/12) Hypokalemia (Chronic) Insomnia (Acute) Lower leg edema (Acute) Myalgia and myositis (Acute) NSAID long-term use (Acute) Polyarthritis (Acute) Restless leg syndrome (Chronic) Medical History Depression Septic joint of left knee joint (06/19/14) Popliteal cyst Fever Hematuria Upper GI bleed Surgical History History of dilatation and curettage History of bilateral tubal ligation History of arthroscopy History of appendectomy Family History Father Family history of diabetes mellitus Mother Family history of diabetes mellitus Stroke Denies family history of Ovarian cancer Prostate cancer Myocardial infarction Breast cancer Colorectal cancer Social History Smoking Status: Current every day smoker Tobacco Type: Cigarettes Age Started Using Tobacco: 18; packs per day: 1; Second Hand Exposure: No; Do You Dip or Chew Tobacco: No; Hx Alcohol Use: No Hx Substance Use: No Preferred Language: Serbian Communication Ability: Effective Visual Impairment: No Limitations Hearing Ability: Normal 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 Beliefs That Will Affect Care: None marital status: Current Living Situation: Spouse current occupational status: retired 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 How many Children do You have: 3 Feels Safe at Home: Yes Childhood Exposure to Second-Hand Smoke: No Diet: regular caffeine: Yes during the past year weight has: remained stable Dental Care, Regularly: No Physical Activity Frequency: Does not Exercise Seatbelt Use: sometimes Sunscreen Use: No Assistive Devices: None Allergies Allergies Allergy/AdvReac Type Severity Reaction Status Date / Time No Known Allergies Allergy Verified 07/14/24 11:19 Home Meds Home Medications Medication Instructions Recorded Confirmed ascorbic acid (vitamin C) 500 mg 500 mg PO QAM 04/07/20 07/14/24 tablet (Vitamin C) ibuprofen 200 mg tablet 400 mg PO Q6H PRN fever/pain 04/07/20 07/14/24 mecobalamin (vitamin B12) 1,000 1,000 mcg PO DAILY 07/20/22 07/14/24 mcg chewable tablet cholecalciferol (vitamin D3) 25 25 mcg PO DAILY 11/08/22 07/14/24 mcg (1,000 unit) capsule (Vitamin D3) multivitamin 1 tab PO DAILY 11/08/22 07/14/24 zinc gluconate 50 mg tablet 50 mg PO DAILY 11/08/22 07/14/24 Previous Rx's Medication Instructions Recorded furosemide 40 mg tablet 40 mg PO DAILY PRN edema #30 tabs 07/20/22 esomeprazole magnesium 20 mg 20 mg PO DAILY #30 caps 07/08/23 capsule,delayed release (Nexium) sucralfate 1 gram tablet 1 g PO BID #60 tabs 07/08/23 felodipine 10 mg tablet,extended 10 mg PO DAILY #90 tabs 09/28/23 release 24 hr CPAP Machine #1 ea 11/02/23 lisinopril 40 mg tablet 40 mg PO QAM #90 tabs 12/29/23 simvastatin 40 mg tablet 40 mg PO HS #90 tabs 12/29/23 hydrochlorothiazide 25 mg tablet 25 mg PO QAM #90 tabs 01/05/24 potassium chloride 10 mEq 10 meq PO .COMPLEX #270 tabs 02/14/24 tablet,extended release bupropion HCl 150 mg 24 hr tablet, 150 mg PO DAILY #90 tabs 02/24/24 extended release metoprolol tartrate 100 mg tablet 100 mg PO BID #90 tabs 07/04/24 benzonatate 200 mg capsule 200 mg PO TID PRN cough #60 caps 07/07/24 ipratropium 0.5 mg-albuterol 3 mg 3 ml inhalation QID PRN wheezing 07/14/24 (2.5 mg base)/3 mL nebulization #90 mL soln levofloxacin 500 mg tablet 500 mg PO DAILY #7 tabs 07/14/24 nystatin 100,000 unit/mL oral 5 ml PO DAILY #60 mL 07/14/24 suspension prednisone 20 mg tablet See Rx Instructions PO DAILY #30 07/14/24 tabs Results & Data (ED) Vital Signs Vital Signs - 24 hr 07/22/24 00:21 07/22/24 00:26 07/22/24 00:36 Temperature 36.3 C L Temperature Source Temporal Artery Scan Pulse Rate 89 84 Pulse Rate [Apical] 80 Pulse Rate from SpO2 Sensor Respiratory Rate 18 22 25 H Respiratory Effort / Characteristics Non-Labored Spontaneous Spontaneous Respiratory Depth Normal Respiratory Pattern Regular Blood Pressure 116/52 L Blood Pressure [Left Arm] 189/133 H Blood Pressure Mean 73 Blood Pressure Mean [Left Arm] 151 Blood Pressure Position Sitting Pulse Oximetry 97 97 99 Oxygen Delivery Method Room Air Room Air Room Air Sepsis Recent Fever Within 48 Hours No Sepsis New/Unexplained Change in Mental Status N/A Sepsis Action Taken by Nursing No Action Required 07/22/24 00:37 07/22/24 01:18 07/22/24 01:36 Temperature Temperature Source Pulse Rate 77 75 71 Pulse Rate [Apical] Pulse Rate from SpO2 Sensor 74 71 Respiratory Rate 18 23 Respiratory Effort / Characteristics Respiratory Depth Respiratory Pattern Blood Pressure 172/99 H 171/90 H Blood Pressure [Left Arm] Blood Pressure Mean 123 117 Blood Pressure Mean [Left Arm] Blood Pressure Position Pulse Oximetry 95 94 Oxygen Delivery Method Room Air Room Air Sepsis Recent Fever Within 48 Hours Sepsis New/Unexplained Change in Mental Status Sepsis Action Taken by Nursing Laboratory Data 07/22/24 00:30 07/22/24 00:30 Lab Results 07/22/24 07/22/24 Range/Units 00:30 00:42 WBC 21.86 H (4.8-10.8) K/ul RBC 5.12 (4.20-5.40) M/uL Hgb 14.8 (12.0-16.0) g/dl POC Hgb 15.3 (12.0-16.0) g/dl Hct 44.6 (37.0-47.0) % POC Hct 45 (37-47) % MCV 87.1 (80.0-100.0) fL MCH 28.9 (25.0-34.0) pg MCHC 33.2 (32.0-36.0) g/dL RDW Std Deviation 48.1 H (36.4-46.3) fL RDW Coeff of Donnell 15.2 H (11.5-14.5) % Plt Count 305 (130-400) K/uL MPV 11.1 (9.4-12.4) fL Immature Gran % (Auto) 1.0 % Neut % (Auto) 61.8 % Lymph % (Auto) 26.9 % Zavala % (Auto) 10.2 % Eos % (Auto) 0.0 % Baso % (Auto) 0.1 % Neut # (Auto) 13.49 H (1.40-6.50) K/uL Lymph # (Auto) 5.88 H (1.20-3.40) K/uL Zavala # (Auto) 2.24 H (0.11-0.59) K/uL Eos # (Auto) 0.01 (0.00-0.50) K/uL Baso # (Auto) 0.03 (0.00-0.20) K/uL Immature Gran # (Auto) 0.21 H (0.01-0.20) K/uL Target Cells 1+ Stomatocytes 1+ PT 10.9 (9.0-12.0) Seconds INR 1.0 (0.9-1.1) APTT 23 (21-31) Seconds PTT Ratio 0.9 POC Sodium 140 (135-144) mmol/L Sodium 140 (136-145) mmol/L POC Potassium 3.6 (3.3-5.0) mmol/L Potassium 3.8 (3.5-5.1) mmol/L POC Chloride 98 L (101-112) mmol/L Chloride 101 (98-107) mmol/L Carbon Dioxide 37 H (21-32) mmol/L POC Total CO2 30 (24-31) mmol/L Anion Gap 2 L (3-11) POC Anion Gap 17.0 (16-25) mmol/L POC BUN 26 H (7-18) mg/dl BUN 26 H (6-23) mg/dl Creatinine 1.20 (0.6-1.2) mg/dl POC Creatinine 1.2 (0.6-1.3) mg/dl Est Cr Clr Drug Dosing 53.0 ml/min eGFR 49.61 BUN/Creatinine Ratio 21.7 H (10-20) Glucose 112 H (70-99(Fasting)) mg/dl POC Glucose (other) 112 H (70-99) mg/dl Calcium 9.4 (8.6-10.3) mg/dl POC Ioniz Calcium Paola 1.18 (1.12-1.32) mmol/l Total Bilirubin 0.4 (0.2-1.0) mg/dl AST 72 H (13-39) U/L ALT 60 H (7-52) U/L Alkaline Phosphatase 99 (34-104) U/L Troponin I High Sens 6.9 (0-14) pg/ml Total Protein 6.7 (6.0-8.3) gm/dl Albumin 4.1 (3.4-5.0) gm/dl Globulin 2.6 (2.5-4.0) gm/dl Albumin/Globulin Ratio 1.6 (0.9-2) Lipase 52 (11-82) U/L Administered Medications Discontinued Medications Ioversol (Optiray 320 125ml) 118 ml IV ONCE ONE Stop: 07/22/24 00:56 Last Admin: 07/22/24 01:01 Dose: 118 ml Documented By: LEON Morphine Sulfate (Morphine Sulfate 4 Mg/Ml 1 Ml Carp\Vial) 4 mg IV NOW STA Stop: 07/22/24 00:37 Last Admin: 07/22/24 00:41 Dose: 4 mg Documented By: SAROJ Morphine Sulfate (Morphine Sulfate 4 Mg/Ml 1 Ml Carp\Vial) 4 mg IV NOW STA Stop: 07/22/24 01:05 Last Admin: 07/22/24 01:15 Dose: 4 mg Documented By: SAROJ Imaging Data Radiologist's Impression: Abdomen/Pelvis CTA 07/22/24 00:44 EXAM: CT angio abdomen pelvis w con CLINICAL HISTORY: pain TECHNIQUE: Contrast enhanced thin slice CT angiography scan of the abdominal aorta was performed with intravenous contrast. Angiographic images were processed, 3D MIP images were acquired for interpretation. Contiguous axial images were obtained. Reformatted coronal and sagittal images were also reviewed. If IV contrast material had not been administered, the likelihood of detecting abnormalities relevant to the patients condition would have been substantially decreased. CT scan was performed according to ALARA (as low as reasonable achievable). COMPARISON: May 06/2024 10:34:18 CLEANER WINDOW FINDINGS: Atelectatic bands are noted involving right middle lobe. Diffuse atherosclerotic calcifications are noted involving aorta and iliac arteries. No significant stenosis Abdominal aorta is normal in course, calibre and opacification. Origin of coeliac artery, superior mesenteric artery , bilateral main renal and lumbar arteries are normal with no hemodynamically significant ostial stenosis noted. Bilateral common, external and internal iliac arteries are normal in course, caliber and opacification. Hepatic steatosis. Solid abdominal organs including , spleen, pancreas and bilateral kidneys reveal no significant abnormality. Multiple small uncomplicated sigmoid colonic diverticulosis No evidence of ascites. IMPRESSION: 1. Diffuse atherosclerotic calcifications are noted involving aorta and iliac arteries. No significant stenosis 2. No obvious aortic aneurysm no thrombosis or dissection. 3. Multiple small uncomplicated sigmoid colonic diverticulosis-stable. 4. Hepatic steatosis. -stable. 5. No other new interval abnormality since prior study. Electronically signed by Jose Raul Verma 07-22-2024 02:46 AM Discharge Plan Visit Data Chief Complaint: Chest Pain Stated Complaint: CHEST PAIN ED Provider: Alejandro Marquez Discharge Problem: Chest pain, Abdominal pain, RUQ Patient Disposition: Being Evaluated by Hospitalist Forms Stand Alone Forms: My [employer] Prescriptions Prescriptions: No Action felodipine 10 mg tablet extended release 24 hr 10 mg PO DAILY Qty: 90 3RF simvastatin 40 mg tablet 40 mg PO HS Qty: 90 3RF lisinopril 40 mg tablet 40 mg PO QAM Qty: 90 3RF hydrochlorothiazide 25 mg tablet 25 mg PO QAM Qty: 90 3RF potassium chloride 10 mEq tablet extended release 10 meq PO .COMPLEX Qty: 270 3RF Rx Instructions: TAKES 20 MEQ QAM, THEN 10 THOMAS QPM. bupropion HCl 150 mg tablet extended release 24 hr 150 mg PO DAILY Qty: 90 3RF metoprolol tartrate 100 mg tablet 100 mg PO BID Qty: 90 3RF mecobalamin (vitamin B12) 1,000 mcg tablet,chewable 1,000 mcg PO DAILY furosemide 40 mg tablet 40 mg PO DAILY PRN (Reason: edema) Qty: 30 5RF ipratropium-albuterol 0.5 mg-3 mg(2.5 mg base)/3 mL solution for nebulization 3 ml inhalation QID PRN (Reason: wheezing) Qty: 90 4RF prednisone 20 mg tablet See Rx Instructions PO DAILY Qty: 30 0RF Rx Instructions: 3 tab daily for 5 days, 2 tab daily for 5 days, 1 tab for 5 days orally daily; levofloxacin 500 mg tablet 500 mg PO DAILY Qty: 7 0RF nystatin 100,000 unit/mL suspension 5 ml PO DAILY Qty: 60 0RF Rx Instructions: swish and swallow daily till clear benzonatate 200 mg capsule 200 mg PO TID PRN (Reason: cough) Qty: 60 3RF esomeprazole magnesium [Nexium] 20 mg capsule,delayed release(DR/EC) 20 mg PO DAILY Qty: 30 2RF sucralfate 1 gram tablet 1 g PO BID Qty: 60 2RF (DME) CPAP Machine Misc See Rx Instructions .Route Qty: 1 0RF Rx Instructions: ResMed CPAP 14 cm water pressure C flex setting #3 with heated humidification, tubing, and supplies. CRISTÓBAL: 99+ years. ascorbic acid (vitamin C) [Vitamin C] 500 mg Tablet 500 mg PO QAM ibuprofen 200 mg Tablet 400 mg PO Q6H PRN (Reason: fever/pain) multivitamin [One A Day Vitamin] Tablet 1 tab PO DAILY zinc gluconate 50 mg Tablet 50 mg PO DAILY cholecalciferol (vitamin D3) [Vitamin D3] 25 mcg (1,000 unit) Capsule 25 mcg PO DAILY Referrals Referrals: Julita Palacio CRNP [Primary Care Provider] -
[2024-07-22 00:50] LABS: Hematocrit (blood only) 44.6 % (37.0-47.0); Hemoglobin 14.8 g/dl (12.0-16.0); Mean Corpuscular Hemoglobin 28.9 pg (25.0-34.0); Mean Corpuscular Hgb Conc 33.2 g/dL (32.0-36.0); Mean Corpuscular Volume 87.1 fL (80.0-100.0); Mean Platelet Volume 11.1 fL (9.4-12.4); Platelet Count 305 K/uL (130-400); RDW Coefficient of Variation 15.2 % (11.5-14.5); RDW Standard Deviation 48.1 fL (36.4-46.3); Red Blood Count 5.12 M/uL (4.20-5.40); White Blood Count 21.86 K/ul (4.8-10.8)
[2024-07-22 00:54] LABS: iSTAT Creatinine 1.2 mg/dl (0.6-1.3); iSTAT Hemoglobin 15.3 g/dl (12.0-16.0); iSTAT Ionized Calcium 1.18 mmol/l (1.12-1.32); iSTAT Potassium 3.6 mmol/L (3.3-5.0)
[2024-07-22] MEDS: OPTIRAY 320 125ml IV ONE (01:01)
[2024-07-22 01:07] LABS: Albumin Globulin Ratio 1.6 (0.9-2); Albumin Level 4.1 gm/dl (3.4-5.0); BUN Creatinine Ratio 21.7 (10-20); Bilirubin,Total 0.4 mg/dl (0.2-1.0); Calcium 9.4 mg/dl (8.6-10.3); Globulin 2.6 gm/dl (2.5-4.0); Potassium 3.8 mmol/L (3.5-5.1); Total Protein 6.7 gm/dl (6.0-8.3)
[2024-07-22 01:14] LABS: Troponin I High Sensitivity 6.9 pg/ml (0-14)
[2024-07-22 01:16] LABS: Basophils # (auto) 0.03 K/uL (0.00-0.20); Basophils % (auto) 0.1 %; Eosinophils # (auto) 0.01 K/uL (0.00-0.50); Immature Granulocytes # (auto) 0.21 K/uL (0.01-0.20); Lymphocytes # (auto) 5.88 K/uL (1.20-3.40); Lymphocytes % (auto) 26.9 %; Monocytes # (auto) 2.24 K/uL (0.11-0.59); Monocytes % (auto) 10.2 %; Neutrophils # (auto) 13.49 K/uL (1.40-6.50); Neutrophils % (auto) 61.8 %; Stomatocytes 1+; Target Cells 1+
[2024-07-22 01:17] LABS: Partial Thromboplastin Ratio 0.9; Partial Thromboplastin Time 23 Seconds (21-31); Prothrombin Time 10.9 Seconds (9.0-12.0)
--- NOTE | 2024-07-22 02:47 | CT Scan Report ---
EXAM: CT angio abdomen pelvis w con CLINICAL HISTORY: pain TECHNIQUE: Contrast enhanced thin slice CT angiography scan of the abdominal aorta was performed with intravenous contrast. Angiographic images were processed, 3D MIP images were acquired for interpretation. Contiguous axial images were obtained. Reformatted coronal and sagittal images were also reviewed. If IV contrast material had not been administered, the likelihood of detecting abnormalities relevant to the patients condition would have been substantially decreased. CT scan was performed according to ALARA (as low as reasonable achievable). 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 Diffuse atherosclerotic calcifications are noted involving aorta and iliac arteries. No significant stenosis Abdominal aorta is normal in course, calibre and opacification. Origin of coeliac artery, superior mesenteric artery , bilateral main renal and lumbar arteries are normal with no hemodynamically significant ostial stenosis noted. Bilateral common, external and internal iliac arteries are normal in course, caliber and opacification. Hepatic steatosis. Solid abdominal organs including , spleen, pancreas and bilateral kidneys reveal no significant abnormality. Multiple small uncomplicated sigmoid colonic diverticulosis No evidence of ascites. IMPRESSION: 1. Diffuse atherosclerotic calcifications are noted involving aorta and iliac arteries. No significant stenosis 2. No obvious aortic aneurysm no thrombosis or dissection. 3. Multiple small uncomplicated sigmoid colonic diverticulosis-stable. 4. Hepatic steatosis. -stable. 5. No other new interval abnormality since prior study. Electronically signed by Jose Raul Verma 07-22-2024 02:46 AM
--- NOTE | 2024-07-22 02:49 | CT Scan Report ---
EXAM: CT angio chest dissec wo/w con CLINICAL HISTORY: CP TECHNIQUE: Contiguous axial images were obtained from the neck base through the upper abdomen following intravenous administration of iodinated contrast material. Angiographic images were processed, 3D MIP images were acquired for interpretation. If IV contrast material had not been administered, the likelihood of detecting abnormalities relevant to the patient's condition would have been substantially decreased. Coronal and sagittal 3-D MIPs were likewise performed and indicated to increase the sensitivity of detectin diffuse clinically relevant pathology. CT scan was performed according to ALARA (as low as reasonably achievable). 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 Ascending aorta is normal in course, calibre and opacification. Arch of aorta is left sided with normal outline and opacification. Descending thoracic aorta is normal in course, calibre and opacification. Origin of major neck arteries are normal with no hemodynamically significant ostial stenosis seen. Adequate contrast bolus without evidence of pulmonary embolism. The central airways are patent. Few fibro-atelectatic bands in medial segment of right middle lobe. Azygous lobe is noted. No pleural effusion. No pericardial effusion is identified. The thyroid is unremarkable. No suspicious lytic or sclerotic osseous lesions are identified. IMPRESSION: 1. No evidence of dissection/aneurysm of arch of aorta and thoracic aorta. 2. No evidence of pulmonary embolism. 3. 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 New finding. Electronically signed by Jose Raul Verma 07-22-2024 02:48 AM
--- NOTE | 2024-07-22 03:37 | Ultrasound Report ---
EXAM: US gallbladder CLINICAL HISTORY: ruq pain to chest TECHNIQUE: Static ultrasound images with Grayscale and Doppler of the right upper quadrant were submitted for review. COMPARISON: .None. FINDINGS: The liver is enlarged in size (20 cm) with increased echogenicity suggestive of grade II fatty liver with no focal masses or intrahepatic biliary dilatation. The common bile duct within normal limits. The gallbladder is unremarkable. The pancreas is within normal limits. The right kidney is normal in size and echogenicity without evidence of hydronephrosis, nephrolithiasis or focal mass lesions. IMPRESSION: 1. Diffuse hepatomegaly with grade II fatty liver. 2. No other significant intra abdominal findings. Electronically signed by Jose Raul Verma 07-22-2024 03:37 AM
--- NOTE | 2024-07-22 03:45 | History & Physical Report ---
Date of Service July 22, 2024 Assessment & Plan (1) Chest pain: (2) GERD (gastroesophageal reflux disease): (3) Benign hypertension: (4) Hyperlipidemia: (5) Thrush of mouth and esophagus: (6) Severe sleep apnea: Plan 69-year-old female with history of diabetes, hypertension, GERD, crest/HLA-B27 presenting with acute onset substernal/epigastric chest pain with radiation between her shoulder blades. Troponin x 1 = negative, EKG with no acute ischemic changes #Chest painpatient with troponin = 6.9--> 3.9. EKG with no acute ischemic changes. Do not strongly suspect cardiac etiology. More likely GI in nature. Patient has been taking prednisone pills and is also being treated for oral candidiasis. Also with history of GERD. Observation to medical telemetry Protonix 40 mg IV daily Sucralfate 3 times daily Repeat LFTs in the morning #GERD Protonix 40 mg IV daily Sucralfate 3 times daily #Wheeze DuoNebs every 4 hours scheduled Solu-Medrol 20 mg IV daily Continue Tessalon 200 mg 3 times daily as needed #Benign hypertensionblood pressure elevated at present at 153/76 Continue metoprolol 100 mg p.o. twice daily Continue lisinopril 40 mg p.o. every morning Continue hydrochlorothiazide 25 mg p.o. every morning Continue to monitor #Hyperlipidemia Continue simvastatin 40 mg p.o. nightly #Thrush of the mouth and esophagus Continue nystatin to completion If persistent symptoms would consider treatment with fluconazole #Sleep apnea CPAP nightly #Ongoing tobacco use Nicotine patch History of Present Illness Chief Complaint: chest pain Primary Care Provider: ED Barrera Juan Alberto is a 69-year-old female with history of hypertension, hyperlipidemia, GERD and crest/HLA-B27 presenting with chest pain. Patient was sleeping and woke at 2300 hrs. with acute onset chest pain. The pain was severe in nature, located in the epigastric area with radiation into her back between her shoulder blades, twisting/tightness in nature, 10 out of 10 in severity. she had no associated diaphoresis/nausea/vomiting/shortness of breath or dizziness. Patient's pain persisted despite 4 mg of morphine but was relieved with the second dose of 4 mg. Patient was recently diagnosed with pneumonia in the outpatient setting. She just completed her course of Levaquin. Has been taking Mucinex. She has also been on a prednisone taper. Also with oral thrush and was prescribed nystatin. She does report some bright red blood in her stool on 1 occasion last week. No cardiac history. No prior VA or stents. In the ER patient afebrile, hypertensive, no acute distress ER course: Morphine 4 mg IV x 2 Protonix, Pepcid and Maalox ordered Allergies Allergy/AdvReac Type Severity Reaction Status Date / Time No Known Allergies Allergy Verified 07/22/24 02:58 Home Medications Medication Instructions Recorded Confirmed Type ascorbic acid (vitamin C) 500 mg 500 mg PO QAM 04/07/20 07/22/24 History tablet (Vitamin C) ibuprofen 200 mg tablet 400 mg PO Q6H PRN fever/pain 04/07/20 07/22/24 History furosemide 40 mg tablet 40 mg PO DAILY PRN edema #30 tabs 07/20/22 07/22/24 Rx mecobalamin (vitamin B12) 1,000 1,000 mcg PO DAILY 07/20/22 07/22/24 History mcg chewable tablet cholecalciferol (vitamin D3) 25 25 mcg PO DAILY 11/08/22 07/22/24 History mcg (1,000 unit) capsule (Vitamin D3) multivitamin 1 tab PO DAILY 11/08/22 07/22/24 History zinc gluconate 50 mg tablet 50 mg PO DAILY 11/08/22 07/22/24 History esomeprazole magnesium 20 mg 20 mg PO DAILY #30 caps 07/08/23 07/22/24 Rx capsule,delayed release (Nexium) sucralfate 1 gram tablet 1 g PO BID #60 tabs 07/08/23 07/22/24 Rx felodipine 10 mg tablet,extended 10 mg PO DAILY #90 tabs 09/28/23 07/22/24 Rx release 24 hr CPAP Machine #1 ea 11/02/23 07/14/24 Rx lisinopril 40 mg tablet 40 mg PO QAM #90 tabs 12/29/23 07/22/24 Rx simvastatin 40 mg tablet 40 mg PO HS #90 tabs 12/29/23 07/22/24 Rx hydrochlorothiazide 25 mg tablet 25 mg PO QAM #90 tabs 01/05/24 07/22/24 Rx potassium chloride 10 mEq 10 meq PO .COMPLEX #270 tabs 02/14/24 07/22/24 Rx tablet,extended release bupropion HCl 150 mg 24 hr tablet, 150 mg PO DAILY #90 tabs 02/24/24 07/22/24 Rx extended release metoprolol tartrate 100 mg tablet 100 mg PO BID #90 tabs 07/04/24 07/22/24 Rx benzonatate 200 mg capsule 200 mg PO TID PRN cough #60 caps 07/07/24 07/22/24 Rx ipratropium 0.5 mg-albuterol 3 mg 3 ml inhalation QID PRN wheezing 07/14/24 07/22/24 Rx (2.5 mg base)/3 mL nebulization #90 mL soln levofloxacin 500 mg tablet 500 mg PO DAILY #7 tabs 07/14/24 07/22/24 Rx nystatin 100,000 unit/mL oral 5 ml PO DAILY #60 mL 07/14/24 07/22/24 Rx suspension prednisone 20 mg tablet See Rx Instructions PO DAILY #30 07/14/24 07/22/24 Rx tabs Past Med/Surg History Problem List Abdominal pain, RUQ (Acute) Chest pain (Acute) Pneumonia Thrush of mouth and esophagus Dyspnea on exertion Persistent cough for 3 weeks or longer Acute URI of multiple sites Morbid obesity Nocturnal hypoxemia Severe sleep apnea Epigastric abdominal pain Smoker Lower extremity edema Arthralgia Venous (peripheral) insufficiency JELENA positive History of right knee joint replacement Stress incontinence Anxiety CREST syndrome (Chronic) HLA B27 (HLA B27 positive) Anemia (Acute) Benign hypertension (Chronic 10/04/12) GERD (gastroesophageal reflux disease) (Chronic) Hyperlipidemia (Chronic 10/04/12) Hypokalemia (Chronic) Insomnia (Acute) Lower leg edema (Acute) Myalgia and myositis (Acute) NSAID long-term use (Acute) Polyarthritis (Acute) Restless leg syndrome (Chronic) Medical History Depression Septic joint of left knee joint (06/19/14) Popliteal cyst Fever Hematuria Upper GI bleed Surgical History History of dilatation and curettage History of bilateral tubal ligation History of arthroscopy 2-5-19 L TKA, Dr Bhat History of appendectomy Family History Father Family history of diabetes mellitus Mother Family history of diabetes mellitus Stroke Denies family history of Ovarian cancer Prostate cancer Myocardial infarction Breast cancer Colorectal cancer Social History Smoking Status: Current every day smoker Tobacco Type: Cigarettes Age Started Using Tobacco: 18; packs per day: 1; Second Hand Exposure: No; Do You Dip or Chew Tobacco: No; Hx Alcohol Use: No Hx Substance Use: No Preferred Language: Frisian Communication Ability: Effective Visual Impairment: No Limitations Hearing Ability: Normal Transportation Assistant Required: No Beliefs That Will Affect Care: None marital status: Current Living Situation: Spouse current occupational status: retired 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 How many Children do You have: 3 Feels Safe at Home: Yes Childhood Exposure to Second-Hand Smoke: No Diet: regular caffeine: Yes during the past year weight has: remained stable Dental Care, Regularly: No Physical Activity Frequency: Does not Exercise Seatbelt Use: sometimes Sunscreen Use: No Assistive Devices: None Review of Systems Review of Systems: All systems reviewed & are unremarkable except as noted in HPI & below Physical Exam Physical Exam: General: patient resting comfortably, NAD, non-toxic in appearance, AA&O x 4 Skin: warm, dry, intact, no rashes or lesions HEENT: NC/AT, PERRL, EOMI, anicteric sclera, conjunctiva without injection, external ear normal to inspection and nontender, nares patent, moist mucus membranes, dentition intact, no oropharyngeal lesions, neck supple, trachea midline, no LAD, no thyromegaly, no JVD Heart: +S1/S2, regular, no m/r/g Lungs: equal air entry bilaterally, expiratory wheezing appreciated in right lung, no rhonchi/rales Abd: +BS, soft, ND, severely tender to palpation of the epigastric area, no masses/organomegaly/ascites Ext: warm, 2+ pulses in UE/LE bilaterally, no clubbing/cyanosis or edema Neuro: nonfocal, patient AA&O x 4, speech intact, no facial droop, moving all extremities on command with equal strength 5/5 Results & Data Results & Data Vital Signs (Past 12 Hours) Vital Signs Temp Pulse Pulse Resp BP BP Pulse Ox 07/22/24 03:31 153/76 H 07/22/24 03:31 153/76 H 07/22/24 03:31 153/76 H 07/22/24 03:30 64 20 94 07/22/24 01:36 71 23 171/90 H 94 07/22/24 01:18 75 18 172/99 H 95 07/22/24 00:37 77 07/22/24 00:36 80 25 H 189/133 H 99 07/22/24 00:26 84 22 97 07/22/24 00:21 36.3 C L 89 18 116/52 L 97 O2 Del Method 07/22/24 03:31 07/22/24 03:31 07/22/24 03:31 07/22/24 03:30 07/22/24 01:36 Room Air 07/22/24 01:18 Room Air 07/22/24 00:37 07/22/24 00:36 Room Air 07/22/24 00:26 Room Air 07/22/24 00:21 Room Air Laboratory Results Laboratory Results WBC 21.86 K/ul (4.8-10.8) H 07/22/24 00:30 RBC 5.12 M/uL (4.20-5.40) 07/22/24 00:30 Hgb 14.8 g/dl (12.0-16.0) 07/22/24 00:30 POC Hgb 15.3 g/dl (12.0-16.0) 07/22/24 00:42 Hct 44.6 % (37.0-47.0) 07/22/24 00:30 POC Hct 45 % (37-47) 07/22/24 00:42 MCV 87.1 fL (80.0-100.0) 07/22/24 00:30 MCH 28.9 pg (25.0-34.0) 07/22/24 00:30 MCHC 33.2 g/dL (32.0-36.0) 07/22/24 00:30 RDW Std Deviation 48.1 fL (36.4-46.3) H 07/22/24 00:30 RDW Coeff of Donnell 15.2 % (11.5-14.5) H 07/22/24 00:30 Plt Count 305 K/uL (130-400) 07/22/24 00:30 MPV 11.1 fL (9.4-12.4) 07/22/24 00:30 Immature Gran % (Auto) 1.0 % 07/22/24 00:30 Neut % (Auto) 61.8 % 07/22/24 00:30 Lymph % (Auto) 26.9 % 07/22/24 00:30 [place] % (Auto) 10.2 % 07/22/24 00:30 Eos % (Auto) 0.0 % 07/22/24 00:30 Baso % (Auto) 0.1 % 07/22/24 00:30 Neut # (Auto) 13.49 K/uL (1.40-6.50) H 07/22/24 00:30 Lymph # (Auto) 5.88 K/uL (1.20-3.40) H 07/22/24 00:30 [place] # (Auto) 2.24 K/uL (0.11-0.59) H 07/22/24 00:30 Eos # (Auto) 0.01 K/uL (0.00-0.50) 07/22/24 00:30 Baso # (Auto) 0.03 K/uL (0.00-0.20) 07/22/24 00:30 Immature Gran # (Auto) 0.21 K/uL (0.01-0.20) H 07/22/24 00:30 Target Cells 1+ 07/22/24 00:30 Stomatocytes 1+ 07/22/24 00:30 PT 10.9 Seconds (9.0-12.0) 07/22/24 00:30 INR 1.0 (0.9-1.1) 07/22/24 00:30 APTT 23 Seconds (21-31) 07/22/24 00:30 PTT Ratio 0.9 07/22/24 00:30 POC Sodium 140 mmol/L (135-144) 07/22/24 00:42 Sodium 140 mmol/L (136-145) 07/22/24 00:30 POC Potassium 3.6 mmol/L (3.3-5.0) 07/22/24 00:42 Potassium 3.8 mmol/L (3.5-5.1) 07/22/24 00:30 POC Chloride 98 mmol/L (101-112) L 07/22/24 00:42 Chloride 101 mmol/L (98-107) 07/22/24 00:30 Carbon Dioxide 37 mmol/L (21-32) H 07/22/24 00:30 POC Total CO2 30 mmol/L (24-31) 07/22/24 00:42 Anion Gap 2 (3-11) L 07/22/24 00:30 POC Anion Gap 17.0 mmol/L (16-25) 07/22/24 00:42 POC BUN 26 mg/dl (7-18) H 07/22/24 00:42 BUN 26 mg/dl (6-23) H 07/22/24 00:30 Creatinine 1.20 mg/dl (0.6-1.2) 07/22/24 00:30 POC Creatinine 1.2 mg/dl (0.6-1.3) 07/22/24 00:42 Est Cr Clr Drug Dosing 53.0 ml/min 07/22/24 00:30 eGFR 49.61 07/22/24 00:30 BUN/Creatinine Ratio 21.7 (10-20) H 07/22/24 00:30 Glucose 112 mg/dl (70-99(Fasting)) H 07/22/24 00:30 POC Glucose (other) 112 mg/dl (70-99) H 07/22/24 00:42 Calcium 9.4 mg/dl (8.6-10.3) 07/22/24 00:30 POC Ioniz Calcium [place] 1.18 mmol/l (1.12-1.32) 07/22/24 00:42 Total Bilirubin 0.4 mg/dl (0.2-1.0) 07/22/24 00:30 AST 72 U/L (13-39) H 07/22/24 00:30 ALT 60 U/L (7-52) H 07/22/24 00:30 Alkaline Phosphatase 99 U/L (34-104) 07/22/24 00:30 Troponin I High Sens 3.9 pg/ml (0-14) 07/22/24 03:00 Total Protein 6.7 gm/dl (6.0-8.3) 07/22/24 00:30 Albumin 4.1 gm/dl (3.4-5.0) 07/22/24 00:30 Globulin 2.6 gm/dl (2.5-4.0) 07/22/24 00:30 Albumin/Globulin Ratio 1.6 (0.9-2) 07/22/24 00:30 Lipase 52 U/L (11-82) 07/22/24 00:30 Impressions Chest CTA 07/22/24 00:37 EXAM: CT angio chest dissec wo/w con CLINICAL HISTORY: CP TECHNIQUE: Contiguous axial images were obtained from the neck base through the upper abdomen following intravenous administration of iodinated contrast material. Angiographic images were processed, 3D MIP images were acquired for interpretation. If IV contrast material had not been administered, the likelihood of detecting abnormalities relevant to the patient's condition would have been substantially decreased. Coronal and sagittal 3-D MIPs were likewise performed and indicated to increase the sensitivity of detectin diffuse clinically relevant pathology. CT scan was performed according to ALARA (as low as reasonably achievable). 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 Ascending aorta is normal in course, calibre and opacification. Arch of aorta is left sided with normal outline and opacification. Descending thoracic aorta is normal in course, calibre and opacification. Origin of major neck arteries are normal with no hemodynamically significant ostial stenosis seen. Adequate contrast bolus without evidence of pulmonary embolism. The central airways are patent. Few fibro-atelectatic bands in medial segment of right middle lobe. Azygous lobe is noted. No pleural effusion. No pericardial effusion is identified. The thyroid is unremarkable. No suspicious lytic or sclerotic osseous lesions are identified. IMPRESSION: 1. No evidence of dissection/aneurysm of arch of aorta and thoracic aorta. 2. No evidence of pulmonary embolism. 3. 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 New finding. Electronically signed by Jose Raul Verma 07-22-2024 02:48 AM Abdomen/Pelvis CTA 07/22/24 00:44 EXAM: CT angio abdomen pelvis w con CLINICAL HISTORY: pain TECHNIQUE: Contrast enhanced thin slice CT angiography scan of the abdominal aorta was performed with intravenous contrast. Angiographic images were processed, 3D MIP images were acquired for interpretation. Contiguous axial images were obtained. Reformatted coronal and sagittal images were also reviewed. If IV contrast material had not been administered, the likelihood of detecting abnormalities relevant to the patients condition would have been substantially decreased. CT scan was performed according to ALARA (as low as reasonable achievable). 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 Diffuse atherosclerotic calcifications are noted involving aorta and iliac arteries. No significant stenosis Abdominal aorta is normal in course, calibre and opacification. Origin of coeliac artery, superior mesenteric artery , bilateral main renal and lumbar arteries are normal with no hemodynamically significant ostial stenosis noted. Bilateral common, external and internal iliac arteries are normal in course, caliber and opacification. Hepatic steatosis. Solid abdominal organs including , spleen, pancreas and bilateral kidneys reveal no significant abnormality. Multiple small uncomplicated sigmoid colonic diverticulosis No evidence of ascites. IMPRESSION: 1. Diffuse atherosclerotic calcifications are noted involving aorta and iliac arteries. No significant stenosis 2. No obvious aortic aneurysm no thrombosis or dissection. 3. Multiple small uncomplicated sigmoid colonic diverticulosis-stable. 4. Hepatic steatosis. -stable. 5. No other new interval abnormality since prior study. Electronically signed by Jose Raul Verma 07-22-2024 02:46 AM Gallbladder Ultrasound 07/22/24 01:15 EXAM: US gallbladder CLINICAL HISTORY: ruq pain to chest TECHNIQUE: Static ultrasound images with Grayscale and Doppler of the right upper quadrant were submitted for review. COMPARISON: .None. FINDINGS: The liver is enlarged in size (20 cm) with increased echogenicity suggestive of grade II fatty liver with no focal masses or intrahepatic biliary dilatation. The common bile duct within normal limits. The gallbladder is unremarkable. The pancreas is within normal limits. The right kidney is normal in size and echogenicity without evidence of hydronephrosis, nephrolithiasis or focal mass lesions. IMPRESSION: 1. Diffuse hepatomegaly with grade II fatty liver. 2. No other significant intra abdominal findings. Electronically signed by Jose Raul Verma 07-22-2024 03:37 AM ECG Additional Comments: EKG with normal sinus rhythm at 74 bpm, left axis deviation, CO = 146, QRS = 86, QTc = 406, no acute ischemic changes PG Care Time/CCT Total # of Minutes Spent Total Time Spent with Patient: Total time spent is greater than 50% in coordination of care (as documented) at patient's floor/unit and/or counseling patient: Coding Level of Care Code 96052 INT INP/OBS CARE 75MIN Diagnoses Chest pain R07.9 GERD (gastroesophageal reflux disease) K21.9 Benign hypertension I10 Mixed hyperlipidemia E78.2 Hyperlipidemia type: mixed hyperlipidemia Thrush of mouth and esophagus B37.81; B37.0 Severe sleep apnea G47.30 (4) Hyperlipidemia Hyperlipidemia type: mixed hyperlipidemia Qualified Code(s): E78.2 - Mixed hyperlipidemia
[2024-07-22] MEDS: FAMOTIDINE 20MG IV PUSH 20 MG/5 ML SYR IV STA (03:46)
[2024-07-22] MEDS: PANTOprazole 40 MG/10 ML SYR IV ONE (03:47)
[2024-07-22] MEDS: ALUMINUM/MAGNESIUM SUSP 30 ML UDC PO STA (03:47)
[2024-07-22] MEDS ORDERED: ACETAMINOPHEN 325 MG TAB PO PRN (05:29)
[2024-07-22] MEDS ORDERED: BENZONATATE 100 MG CAPSULE PO PRN (05:29)
[2024-07-22] MEDS ORDERED: methylPREDNISolone 20 MG in SYRINGE 0 ML IV ONE (05:29)
[2024-07-22] MEDS: methylPREDNISolone 125 MG/2 ML VIAL IV STA (05:48)
[2024-07-22] MEDS: SUCRALFATE 1 GM TAB PO SCH (06:40)
[2024-07-22] MEDS ORDERED: MoRPHine SULFATE 2 MG/ML CARP IV PRN (06:43)
[2024-07-22] MEDS ORDERED: POLYETHYLENE (MIRALAX) 17 GM PACK PO PRN (06:44)
[2024-07-22] MEDS: MoRPHine SULFATE 4 MG/ML 1 ML CARP\\VIAL IV PRN (06:53)
[2024-07-22] MEDS: ONDANSETRON INJ 2 MG/ML 2 ML VIAL IV PRN (06:55)
[2024-07-22] MEDS: ALBUT/IPRATROP 3MG/0.5MG NEB 3 ML VIAL NEB SCH (06:59)
--- NOTE | 2024-07-22 07:53 | Hospitalist Progress Note ---
Date of Service July 22, 2024 Assessment & Plan (1) Chest pain: (2) GERD (gastroesophageal reflux disease): (3) Benign hypertension: (4) Hyperlipidemia: (5) Thrush of mouth and esophagus: (6) Severe sleep apnea: Plan 69-year-old female with history of diabetes, hypertension, GERD, crest/HLA-B27 presenting with acute onset substernal/epigastric chest pain with radiation between her shoulder blades. Severe Epigastric Pain/ Esophageal Burning Suspect GERD vs gastric ulcer - Patient presenting with increasing chest and epigastric discomfort Exacerbated with meals - Cardiac workup negative (troponin, EKG, CT Chest) - CTA Chest, CTA Abdomen/Pelvis, and GB Ultrasound unremarkable on admission - Longstanding hx of GERD on PPI/Carafate, though notably uncontrolled - Recent history of prolonged steroid use for chronic cough, potential for increased GERD/ulcer formation Discontinue steroid Potential that outpatient cough was presentation of GERD Leukocytosis on admission, though likely a/w steroid use - Continue Protonix 40 mg IV daily, can increase to BID if sx not controlled - Continue Sucralfate w/ meals - Suspect that presentation is c/w GERD/gastritis vs gastric ulceration Inciting factors potentially include uncontrolled MAU, nicotine use, and prolonged steroids - Monitor CBC/CMP inpatient - Recommend outpatient EGD/colonoscopy Wheezing/Coughing Suspect underlying COPD, contribution from MAU/OHS - Received Solumedrol on admission, discontinued d/t concern for GERD/gastritis association - Continue DuoNebs Q4H and anahi batista - Encouraged smoking cessation - Continue CPAP use when asleep HTN - BP elevations on admission, likely a/w pain - Continue Metoprolol, Lisinopril, and HCTZ - Vitals stable on room air at present Hyperlipidemia Continue simvastatin 40 mg p.o. nightly Thrush of the mouth and esophagus Continue nystatin to completion If persistent symptoms would consider treatment with fluconazole Sleep apnea CPAP nightly Ongoing tobacco use Nicotine patch FENGI: Carafate with meals, diet Code: Full DVT Ppx: SCDs/Ambulation Dispo: Pending clinical improvement, needs to eat w/o emesis and severe pain Admission and Anticipated Discharge Date Admission Date: July 22, 2024 Supervising Physician Co-Signing Physician Notes I personally examined the patient and verified guzmán points of history and exam, discussed case, and agree with decision making and plan documented by Dr. Cabrera. Patient on observation for severe epigastric pain. ACS evaluation, less likely cardiac in nature, will monitor on telemetry. Patient has been on high- dose steroids for multiple weeks. Agree with sucralfate and PPI. Patient attempting to advance diet. Subjective Kady was resting upon arrival to her room around 0900, she was comfortable with her CPAP mask in place. Upon return around 1300, she was awake and comfortable in bed. She notes that her pain is improving, but she still had nausea and emesis with eating lunch. In addition, moving around in bed causes notable epigastric discomfort. She has a longstanding history of GERD, but this episode is her most severe. Patient notes that food is the primary trigger for her pain, and that she often feels acidic liquid/food in the back of her throat after meals. Patient has a longstanding history of MAU, which is unmanaged, as she lost coverage for her CPAP (not wearing enough hours). In addition to this, she is actively smoking 1 pack per day of cigarettes. Patient notes that over the last few months her bowel movements have changed to a looser consistency, but that over the last two weeks she has been having frequent, soft, small bowel movements, which is not her baseline. She did complete a Cologuard last year (negative) but has never completed an EGD or colonoscopy. Over the last few months, patient has received multiple courses of steroids for the management of a cough/suspected URI. She has received multiple courses of steroids (06/12 40 mg PO DAILY 5 days, 07/07 40 mg PO DAILY 7 days, 07/14 3 tab daily for 5 days, 2 tab daily for 5 days, 1 tab for 5 days orally daily). She does not have a known history of gastric/duodenal ulcers, but does have a history of GERD which is typically managed w/ PPI and sucralfate. Physical Exam Physical Exam: General: NAD, non-toxic, pleasant Skin: warm, dry, intact, no rashes or lesions HEENT: NC/AT, no LAD, no thyromegaly, MMM Heart: +S1/S2, regular, no m/r/g Lungs: Non-labored, expiratory wheezing throughout, left lower lobe rhonchi Abd: +BS, distended but soft, severe TTP in epigastrium, no masses/organomegaly, no rebound or guarding Ext: 2+ distal pulses, non-pitting LE edema bilaterally Neuro: AA&O x 4 Results & Data Results & Data Vital Signs (Past 12 Hours) Vital Signs Temp Pulse Pulse Resp BP BP Pulse Ox 07/22/24 06:59 69 20 97 07/22/24 06:29 63 16 167/94 H 98 07/22/24 06:00 07/22/24 05:51 64 14 92 07/22/24 05:50 147/69 H 07/22/24 05:50 147/69 H 07/22/24 05:50 147/69 H 07/22/24 05:50 147/69 H 07/22/24 05:50 147/69 H 07/22/24 05:50 147/69 H 07/22/24 05:48 67 17 95 07/22/24 05:42 67 20 91 07/22/24 05:33 70 13 91 07/22/24 05:21 65 14 92 07/22/24 05:18 65 14 92 07/22/24 05:00 66 16 92 07/22/24 04:33 70 07/22/24 04:30 67 16 92 07/22/24 04:30 152/59 H 07/22/24 04:30 152/59 H 07/22/24 04:30 152/59 H 07/22/24 04:30 152/59 H 07/22/24 04:30 152/59 H 07/22/24 04:30 152/59 H 07/22/24 04:30 152/59 H 07/22/24 04:30 152/59 H 07/22/24 04:30 152/59 H 07/22/24 04:21 66 15 90 07/22/24 04:00 143/76 H 07/22/24 04:00 143/76 H 07/22/24 04:00 143/76 H 07/22/24 04:00 143/76 H 07/22/24 04:00 143/76 H 07/22/24 04:00 143/76 H 07/22/24 04:00 143/76 H 07/22/24 04:00 143/76 H 07/22/24 04:00 143/76 H 07/22/24 04:00 143/76 H 07/22/24 04:00 143/76 H 07/22/24 03:48 65 15 95 07/22/24 03:36 61 16 94 07/22/24 03:31 153/76 H 07/22/24 03:31 153/76 H 07/22/24 03:31 153/76 H 07/22/24 03:31 153/76 H 07/22/24 03:31 153/76 H 07/22/24 03:31 153/76 H 07/22/24 03:31 153/76 H 07/22/24 03:31 153/76 H 07/22/24 03:31 153/76 H 07/22/24 03:31 153/76 H 07/22/24 03:31 153/76 H 07/22/24 03:30 64 20 94 07/22/24 01:36 71 23 171/90 H 94 07/22/24 01:18 75 18 172/99 H 95 07/22/24 00:37 77 07/22/24 00:36 80 25 H 189/133 H 99 07/22/24 00:26 84 22 97 07/22/24 00:21 36.3 C L 89 18 116/52 L 97 O2 Del Method 07/22/24 06:59 Room Air 07/22/24 06:29 Room Air 07/22/24 06:00 Room Air 07/22/24 05:51 07/22/24 05:50 07/22/24 05:50 07/22/24 05:50 07/22/24 05:50 07/22/24 05:50 07/22/24 05:50 07/22/24 05:48 07/22/24 05:42 07/22/24 05:33 07/22/24 05:21 07/22/24 05:18 07/22/24 05:00 07/22/24 04:33 07/22/24 04:30 07/22/24 04:30 07/22/24 04:30 07/22/24 04:30 07/22/24 04:30 07/22/24 04:30 07/22/24 04:30 07/22/24 04:30 07/22/24 04:30 07/22/24 04:30 07/22/24 04:21 07/22/24 04:00 07/22/24 04:00 07/22/24 04:00 07/22/24 04:00 07/22/24 04:00 07/22/24 04:00 07/22/24 04:00 07/22/24 04:00 07/22/24 04:00 07/22/24 04:00 07/22/24 04:00 07/22/24 03:48 07/22/24 03:36 07/22/24 03:31 07/22/24 03:31 07/22/24 03:31 07/22/24 03:31 07/22/24 03:31 07/22/24 03:31 07/22/24 03:31 07/22/24 03:31 07/22/24 03:31 07/22/24 03:31 07/22/24 03:31 07/22/24 03:30 07/22/24 01:36 Room Air 07/22/24 01:18 Room Air 07/22/24 00:37 07/22/24 00:36 Room Air 07/22/24 00:26 Room Air 07/22/24 00:21 Room Air Resident Activity Tracking Resident Involvement: Resident Care Provided Care Provided: Adult Hospital Medicine (4) Hyperlipidemia Hyperlipidemia type: mixed hyperlipidemia Qualified Code(s): E78.2 - Mixed hyperlipidemia
--- NOTE | 2024-07-22 08:01 | Electrocardiogram Report ---
Test Reason : Blood Pressure : */* mmHG Vent. Rate : 74 BPM Atrial Rate : 74 BPM P-R Int : 146 ms QRS Dur : 86 ms QT Int : 366 ms P-R-T Axes : 53 -50 35 degrees QTcB Int : 406 ms Normal sinus rhythm Left axis deviation Abnormal ECG When compared with ECG of 17-Jul-2018 18:09, Criteria for Inferior infarct no longer present Confirmed by Jurgen Au ([id number]) on 07/22/2024 8:01:00 AM Referred By: REFERRED SELF Confirmed By: Jurgen Au
[2024-07-22] MEDS: PANTOprazole 40 MG/10 ML SYR IV SCH (12:34)
[2024-07-22] MEDS: NICOTINE 21 MG/24 HR TDSY TD SCH (12:34)
[2024-07-22] MEDS: buPROPion XL 150 MG TABCR PO SCH (13:20)
[2024-07-22] MEDS: FELODIPINE 5 MG TABCR PO SCH (13:20)
[2024-07-22] MEDS: NYSTATIN SUSP 500,000 U/5 ML UDC PO SCH (13:21)
[2024-07-22] MEDS: METOPROLOL TARTRATE 100 MG TAB PO SCH (13:21)
[2024-07-22] MEDS: lisinopril 40 MG TAB PO SCH (13:21)
[2024-07-22] MEDS: hydroCHLOROthiazide 25 MG TAB PO SCH (13:21)
[2024-07-22] MEDS: DOCUSATE SODIUM/SENNA 50/8.6MG TAB PO SCH (13:24)
[2024-07-22 19:59] VITALS: RESP 18
[2024-07-22] MEDS: SIMVASTATIN 40 MG TAB PO SCH (20:40)
[2024-07-23 04:14] VITALS: O2SAT 94
[2024-07-23 07:30] VITALS: BP 127/76; TEMP 98.4
[2024-07-23 07:35] LABS: Hematocrit (blood only) 42.8 % (37.0-47.0); Hemoglobin 14.2 g/dl (12.0-16.0); Mean Corpuscular Hemoglobin 29.2 pg (25.0-34.0); Mean Corpuscular Hgb Conc 33.2 g/dL (32.0-36.0); Mean Corpuscular Volume 88.1 fL (80.0-100.0); Mean Platelet Volume 11.3 fL (9.4-12.4); Platelet Count 245 K/uL (130-400); RDW Coefficient of Variation 15.6 % (11.5-14.5); RDW Standard Deviation 50.8 fL (36.4-46.3); Red Blood Count 4.86 M/uL (4.20-5.40); White Blood Count 17.14 K/ul (4.8-10.8)
[2024-07-23 07:52] LABS: Albumin Level 3.8 gm/dl (3.4-5.0); BUN Creatinine Ratio 25.9 (10-20); Bilirubin Direct 0.1 mg/dl (0-0.2); Bilirubin,Total 0.6 mg/dl (0.2-1.0); Creatinine Clr Calc Pharmacy 78.5 ml/min; Potassium 3.4 mmol/L (3.5-5.1)
--- NOTE | 2024-07-23 08:19 | Discharge Summary ---
Discharge Summary Date of Service July 23, 2024 Principal Dx & Hospital Course #1 = Principal Diagnosis (1) GERD (gastroesophageal reflux disease): and gastritis (2) Chest pain: (3) Thrush of mouth and esophagus: Diagnosed prior to hospitalization Plan Kady Avendano is a 69 year old female admitted to [facility] from July 22 - 2024 due to epigastric/chest pain. She was diagnosed with gastritis and treated with stopping prednisone, starting Carafate and pantoprazole. She significantly improved the following day and is now pain free on discharge. She should continue on pantoprazole for at least the next month. Can use Carafate four times a day as needed but with plans to wean herself off this. She was advised to follow up with her PCP to arrange EGD (gastritis and ongoing dysphagia) and colonoscopy (blood in stool and change in bowels). Of note sauerkraut likely contributed to her worsening gastritis acutely and she was educated on what foods to avoid. She was previously diagnosed with thrush in mouth and esophagus although no fluconazole previously prescribed. No oral thrush seen on discharge however she was given a nystatin PRN prescription if this returns. Esophageal thrush will be investigated at that time of EGD but no odynophagia to suggest this currently. Notes For Next Care Provider Order EGD (gastritis, ongoing dysphagia) + colonoscopy (change in bowel movements, blood noticed in stool) Encourage smoking cessation Re-prescribe ongoing pantoprazole if needed Monitor for recurrence of thrush (none seen on day of discharge but PRN nystatin prescription given) Medication Changes From Visit Started pantoprazole 40 mg p.o. daily for gastritis As needed Carafate ACHS which she can wean over the next 7 days Nystatin as needed if thrush recurs Admission HPI Per Admitting Provider Kady Avendano is a 69-year-old female with history of hypertension, hyperlipidemia, GERD and crest/HLA-B27 presenting with chest pain. Patient was sleeping and woke at 2300 hrs. with acute onset chest pain. The pain was severe in nature, located in the epigastric area with radiation into her back between her shoulder blades, twisting/tightness in nature, 10 out of 10 in severity. she had no associated diaphoresis/nausea/vomiting/shortness of breath or dizziness. Patient's pain persisted despite 4 mg of morphine but was relieved with the second dose of 4 mg. Patient was recently diagnosed with pneumonia in the outpatient setting. She just completed her course of Levaquin. Has been taking Mucinex. She has also been on a prednisone taper. Also with oral thrush and was prescribed nystatin. She does report some bright red blood in her stool on 1 occasion last week. No cardiac history. No prior IA or stents. In the ER patient afebrile, hypertensive, no acute distress ER course: Morphine 4 mg IV x 2 Protonix, Pepcid and Maalox ordered Discharge Exam Constitutional WD/WN, vitals as above Respiratory normal respiratory effort, lungs clear to auscultation Cardiovascular RRR, no murmur, no edema Gastrointestinal (Abdomen) normal bowel sounds, soft, nontender, no hepatosplenomegaly Discharge Plan Discharge Items Patient Disposition: Home - Self-Care Reason For Visit: CHEST PAIN Discharge Diagnosis: Gastritis/esophagitits Activity: Resume your previous activity Non-emergency contact: Primary Care Provider Call non-emergency contact if: you have any medication questions and your symptoms worsen Follow-up/Referrals: Julita Palacio CRNP [Primary Care Provider] - 07/31/24 10:30 am Diet: Regular Addtl Attending Provider Instructions: You were admitted to [facility] from July 22 - 2024 due to epigastric pain. You were diagnosed with gastritis and treated with stopped prednisone, starting Carafate and pantoprazole. You will continue on pantoprazole for at least the next month. Please use Carafate four times a day initially but wean off as your stomach pain allows. Recommend following up with your primary care physician yo arrange EGD (gastritis and ongoing dysphagia) and colonoscopy (blood in stool and change in bowels). Please avoid reflux causing foods as per seperate hand out sheet. If you notice your thrush returning please use nystatin four times a day as prescribed. If worsening chest pain while eating consider esophgeal thrush and contact your PCP about possible fluconazole course. Smoking increases your risk of gastritis and you were also noticed to have extensive calcifications on CT. Highly recommend quit smoking which you can discuss further with your PCP and/or call [phone] for further advice. Pending Studies at Discharge: No Stand-Alone Forms: My [facility], Smoking Cessation Medications and DC Order Prescriptions: New sucralfate 1 gram Tablet 1 g PO AC 7 Days Qty: 21 0RF pantoprazole 40 mg tablet,delayed release (DR/EC) 40 mg PO DAILY 28 Days Qty: 28 0RF Continued felodipine 10 mg tablet extended release 24 hr 10 mg PO DAILY Qty: 90 3RF simvastatin 40 mg tablet 40 mg PO HS Qty: 90 3RF lisinopril 40 mg tablet 40 mg PO QAM Qty: 90 3RF hydrochlorothiazide 25 mg tablet 25 mg PO QAM Qty: 90 3RF potassium chloride 10 mEq tablet extended release 10 meq PO .COMPLEX Qty: 270 3RF Rx Instructions: TAKES 20 MEQ QAM, THEN 10 THOMAS QPM. bupropion HCl 150 mg tablet extended release 24 hr 150 mg PO DAILY Qty: 90 3RF metoprolol tartrate 100 mg tablet 100 mg PO BID Qty: 90 3RF mecobalamin (vitamin B12) 1,000 mcg tablet,chewable 1,000 mcg PO DAILY furosemide 40 mg tablet 40 mg PO DAILY PRN (Reason: edema) Qty: 30 5RF benzonatate 200 mg capsule 200 mg PO TID PRN (Reason: cough) Qty: 60 3RF (DME) CPAP Machine Misc See Rx Instructions .Route Qty: 1 0RF Hold Instructions: Has not had Medicare took back Rx Instructions: ResMed CPAP 14 cm water pressure C flex setting #3 with heated humidification, tubing, and supplies. CRISTÓBAL: 99+ years. ascorbic acid (vitamin C) [Vitamin C] 500 mg Tablet 500 mg PO QAM multivitamin Tablet 1 tab PO DAILY zinc gluconate 50 mg Tablet 50 mg PO DAILY cholecalciferol (vitamin D3) [Vitamin D3] 25 mcg (1,000 unit) Capsule 25 mcg PO DAILY Discontinued prednisone 20 mg tablet See Rx Instructions PO DAILY Qty: 30 0RF Rx Instructions: STARTED 07/17/24 FOR 15 DAYS. 3 tab daily for 5 days, 2 tab daily for 5 days, 1 tab for 5 days orally daily; levofloxacin 500 mg tablet 500 mg PO DAILY Qty: 7 0RF Rx Instructions: STARTED 07/17/24 FOR 7 DAYS nystatin 100,000 unit/mL suspension 5 ml PO DAILY Qty: 60 0RF Rx Instructions: swish and swallow daily till clear sucralfate 1 gram tablet 1 g PO BID Qty: 60 2RF No Action fluconazole 150 mg tablet 150 mg PO Q3D Qty: 2 1RF albuterol sulfate 90 mcg/actuation HFA aerosol inhaler 2 puff inhalation QID PRN (Reason: shortness of breath or wheezing) Qty: 6.7 2RF Discharge Orders: Discharge Order (Routine); Ordered 07/23/24 Ordered By: Rony Mojica/Other Patient Handouts: GERD Dc Admission Data Admit Date/Time: 07/22/24 03:45 Attending Provider: Rony Siegel Admit Provider: Violetta Bhat Primary Care Provider: Julita Paalcio Other Interventions: Discharge Summary Assessment (RN) Last Done: 07/23/24 09:24 Hospital Stay Data Consultations 07/22/24 02:35 ED Decision to Admit Stat Diagnostic Imagining Performed 07/22/24 00:37 CT angio chest dissec wo/w con Stat IMPRESSION: 1. No evidence of dissection/aneurysm of arch of aorta and thoracic aorta. 2. No evidence of pulmonary embolism. 3. 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 New finding. 07/22/24 00:44 CT angio abdomen pelvis w con Stat IMPRESSION: 1. Diffuse atherosclerotic calcifications are noted involving aorta and iliac arteries. No significant stenosis 2. No obvious aortic aneurysm no thrombosis or dissection. 3. Multiple small uncomplicated sigmoid colonic diverticulosis-stable. 4. Hepatic steatosis. -stable. 5. No other new interval abnormality since prior study. 07/22/24 01:15 US gallbladder Stat IMPRESSION: 1. Diffuse hepatomegaly with grade II fatty liver. 2. No other significant intra abdominal findings. Pending Results Patient Have Any Pending Studies at Discharge: No Discharge Instructions Given to Patient (Per Discharging Provider) You were admitted to [facility] from July 22 - 2024 due to epigastric pain. You were diagnosed with gastritis and treated with stopped prednisone, starting Carafate and pantoprazole. You will continue on pantoprazole for at least the next month. Please use Carafate four times a day initially but wean off as your stomach pain allows. Recommend following up with your primary care physician yo arrange EGD (gastritis and ongoing dysphagia) and colonoscopy (blood in stool and change in bowels). Please avoid reflux causing foods as per seperate hand out sheet. If you notice your thrush returning please use nystatin four times a day as prescribed. If worsening chest pain while eating consider esophgeal thrush and contact your PCP about possible fluconazole course. Smoking increases your risk of gastritis and you were also noticed to have extensive calcifications on CT. Highly recommend quit smoking which you can discuss further with your PCP and/or call [phone] for further advice. Total Time Total Time Spent Total Time Spent (In Minutes): 40 Coding Level of Care Code 14958 INP/OBS DISCH >30 MIN Diagnoses GERD (gastroesophageal reflux disease) K21.9 Chest pain R07.9 Thrush of mouth and esophagus B37.81; B37.0
[2024-07-23 09:27] VITALS: PULSE 64
== END 2024-07-23 09:51 | disposition home or self-care (01) ==
LOC: ED 00:18 → EDINP 00:18 → SUATTDRO 03:45 → 2N 08:22
DX: I10 Essential (primary) hypertension; F17.210 Nicotine dependence, cigarettes, uncomplicated; R07.9 Chest pain, unspecified; G47.30 Sleep apnea, unspecified; B37.0 Candidal stomatitis; E78.5 Hyperlipidemia, unspecified; K21.9 Gastro-esophageal reflux disease without esophagitis; Z79.899 Other long term (current) drug therapy; R05.9 Cough, unspecified; R10.13 Epigastric pain; R06.2 Wheezing